=== PATIENT | female | born 1960 | race Caucasian/White ===

== ENCOUNTER 2019-08-21 22:14 | Inpatient (IN) | payer OTHER, SELFPAY ==
--- NOTE | ~2019-08-21 | XR_ITS ---
EXAMINATION: XR chest 1V portable 08/21/2019 22:58 INDICATION: Chest palpitations. Tachycardia. PROCEDURE: AP portable chest COMPARISON: 04/23/2012 FINDINGS: The lungs are clear. The cardiomediastinal silhouette is within normal limits. There are no pleural effusions. There is no pneumothorax suspected. IMPRESSION: 1: NO ACUTE CARDIOPULMONARY DISEASE. Reviewed, dictated and finalized at location A. [place] LANGUAGE TUTOR
[2019-08-21 22:19] VITALS: BP 169/104; PULSE 177; RESP 27; O2SAT 98
--- NOTE | 2019-08-21 22:22 | ED.ARRPALP ---
HPI - Arrhythmia/Palpitations General Chief Complaint: Arrhythmia/Palpitations Stated Complaint: heart palpitations Time Seen by Provider: 08/21/19 22:22 Source: patient Mode of arrival: ambulatory Limitations: no limitations History of Present Illness HPI narrative: A 58 y/o female presents to the ED with c/o heart palpitations. Pt states that for the last 2 weeks she has had increasing episodes of heart palpitations and lightheadedness. She notes that 1 year ago she had similar episodes and was seen by a equipment operation instructor. At the equipment operation instructor appointment she had a stress test done which revealed benign PVCs. Pt reports nausea and CP, but denies diarrhea and vomiting. She is a nonsmoker and an occasional EtOH drinker. MD complaint: palpitations Onset (ago): week(s) (2) Duration: intermittent Severity: similar to previous episodes Arrhythmia history: other (PVCs) Associated symptoms: chest pain, nausea and other (Lightheadedness) Related Data Allergies Allergy/AdvReac Type Severity Reaction Status Date / Time doxycycline Allergy Mild VOMITING Verified 08/21/19 22:34 fluoxetine Allergy HIVES Verified 08/21/19 22:34 Review of Systems Review of Systems: All systems reviewed & are unremarkable except as noted in HPI and below Cardiovascular: Cardiovascular: Reports chest pain, Reports lightheadedness and Reports other (Palpitations) Gastrointestinal: Gastrointestinal: Denies diarrhea, Reports nausea and Denies vomiting PMFSH Past Medical History Medical History (Updated 08/22/19 @ 00:28 by Mundo Thibodeaux MD) Asthma Bronchitis Depression PVC's (premature ventricular contractions) Rectal polyp Uterine fibroid Surgical History Surgical History (Updated 08/21/19 @ 22:30 by Xochilt Liu) No pertinent past surgical history Family History Family History Other Cerebrovascular accident Hypertension Social History Social History (Updated 08/21/19 @ 22:30 by Xochilt Liu) Smoking status: Never smoker Alcohol intake: current Alcohol use details: Occasional Exam Const: General: healthy appearing, well developed and ill appearing Nutritional Appearance: well nourished Orientation/consciousness: patient oriented x3 (alert) and Other orientation findings (Alert) Limitations: no limitations HENMT: Head: normocephalic and atraumatic Ears: external ears normal General nose exam: No nasal discharge present and no epistaxis Face and sinus: face symmetric Mouth: Yes lip normal, Yes tongue normal and Yes moist mucous membranes Throat: other (No exudate, no erythema) Eyes: Conjunctivae: conjunctivae normal Sclera: sclerae normal EOM: EOMs intact bilaterally Neck: Neck: full ROM, no lymphadenopathy and supple Thyroid: thyroid normal Chest: Chest palpation & inspection: no tenderness Resp: Effort & Inspection: normal respiratory effort Auscultation: clear to auscultation bilaterally, no rales, no rhonchi, no wheezes and other (breath sounds equal) Cardio: Rate: tachycardic Rhythm: regular rhythm Heart sounds: no gallops and no murmurs GI: Inspection: non-distended GI Palp: No abdominal tenderness and Yes Soft to palpation Auscultation: other (bowel sounds present) : General: Yes bladder normal to palpation Back/Spine/Pelvis: Back: no CVA tenderness Thoracic/Lumbar Spine: thoracic and lumbar spine normal to inspection Skin: General skin exam: normal color, no rashes or lesions noted and no pallor Neuro: General: patient oriented x3 (alert), moves all extremities and no focal motor deficits Cranial nerves: Yes facial symmetry Speech: normal speech Motor exam (neuro): Motor abnormalities not present Extrem: General: normal to inspection, full ROM and no pedal edema Psych: Affect: Anxious affect present Course Course Emergency Course: Several quite long periods of sustained v-tach seen on monitor w/ pt remaining alert though apprehensive with a wnl
--- NOTE | 2019-08-21 22:25 | PC.NURSE ---
Per EDP Carlos Eduardo verbal order read-back, start patient 150mg amiodarone IV.
--- NOTE | 2019-08-21 22:28 | ECG_ITS ---
Measurements Intervals [place] Rate: 143 P: 64 DC: 153 QRS: 43 QRSD: 88 T: 65 QT: 319 QTc: 493 Interpretive Statements SINUS TACHYCARDIA WITH INTERMITTENT VENTRICULAR TACHYCARDIA VENTRICULAR PREMATURE COMPLEX ABNORMAL ECG Electronically Signed On 08-22-2019 7:09:56 BOILER PLANT OPERATOR by Negro Larios D.O.
--- NOTE | 2019-08-21 22:30 | PC.NURSE ---
Per EDP Carlos Eduardo verbal order read-back, give patient an additional 150mg amiodarone IV over 1 hour.
--- NOTE | 2019-08-21 22:32 | ECG_ITS ---
Measurements Intervals [place] Rate: 80 P: 67 CO: 144 QRS: 46 QRSD: 94 T: 55 QT: 381 QTc: 441 Interpretive Statements SINUS RHYTHN VENTRICULAR COUPLETS AND VENTRICULAR PREMATURE COMPLEX POSSIBLE LEFT ATRIAL ENLARGEMENT BORDERLINE ST-T WAVE ABNORMALITY- DIFFUSE LEADS ABNORMAL ECG Electronically Signed On 08-22-2019 7:08:46 INTERLOCKING INSTALLER by Negro Larios D.O.
[2019-08-21 22:34] LABS: Basophils Absolute Auto 0.1 K/mm3 (0.0-0.1); Basophils Percent Auto 0.8 % (0.2-1.2); Eosinophils Absolute Auto 0.2 K/mm3 (0-0.3); Eosinophils Percent Auto 1.4 % (0-4.4); Hematocrit 44.4 % (37.0-47.0); Hemoglobin 15.2 g/dL (12.0-15.0); Immature Granulocyte Absolute 0.03 K/mm3 (0.00-0.031); Immature Granulocyte Percent A 0.3 % (0-0.5); Lymphocytes Absolute Auto 4.91 K/mm3 (0.9-3.2); Lymphocytes Percent Auto 41.4 % (18.3-44.2); Mean Corpuscular HGB Conc 34.2 g/dl (32-36); Mean Corpuscular Hemoglobin 30.1 pg (26-34); Mean Corpuscular Volume 87.9 fl (80-100); Mean Platelet Volume 9.7 fl (7.4-10.4); Monocytes Absolute Auto 0.9 K/mm3 (0.1-0.6); Monocytes Percent Auto 7.3 % (2.6-8.5); Neutrophils Absolute Auto 5.8 K/mm3 (1.3-6.7); Neutrophils Percent Auto 48.8 % (45.5-73.1); Platelet Count Result 345 k/mm3 (150-375); Red Blood Count 5.05 M/mm3 (4.2-5.4); Red Cell Distribution Width 12.4 % (11.5-14.5); White Blood Count 11.9 K/mm3 (4.5-10.0)
[2019-08-21] MEDS: ASPIRIN 81 MG CHEWABLE TABLET 324 MG PO (22:42)
[2019-08-21 22:47] LABS: INR 0.9; Partial Thromboplastin Time 26.6 SECONDS (22.3-36.8); Prothrombin Time 11.7 Seconds (11.1-14.7)
[2019-08-21 22:52] LABS: Blood Urea Nitrogen 22 mg/dL (7-17); Calcium 10.7 mg/dL (8.4-10.2); Carbon Dioxide 23 mmol/L (22-30); Chloride 99 mmol/L (98-107); Estimated Glomerular Filt Rate > 60; Glucose 106 mg/dL (65-105); Magnesium 2.4 mg/dL (1.6-2.3); Potassium 3.4 mmol/L (3.4-5.0); Sodium 143 mmol/L (137-145)
--- NOTE | 2019-08-21 23:03 | ECG_ITS ---
Measurements Intervals [place] Rate: 78 P: 64 HI: 147 QRS: 29 QRSD: 89 T: 53 QT: 379 QTc: 432 Interpretive Statements SINUS RHYTHM VENTRICULAR PREMATURE COMPLEX BASELINE ARTIFACT- V5 BORDERLINE ECG Electronically Signed On 08-22-2019 7:07:43 TUBING ASSEMBLER by Negro Larios D.O.
[2019-08-21 23:04] LABS: Troponin I < 0.012 ng/mL (0.000-0.034)
[2019-08-21] MEDS: POTASSIUM CHLORIDE 20 MEQ PACKET (FOR LIQUID) 40 MEQ PO (23:35)
[2019-08-21 23:36] VITALS: BP 178/86; PULSE 86; RESP 18; O2SAT 100
[2019-08-21] MEDS: AMIODARONE 360 MG/D5W 200 ML 360 MG/200 ML BAG 33.3 MG IV CONT (23:52)
[2019-08-22] VITALS (8 sets, daily range): BP systolic 108–148; BP diastolic 75–93; PULSE 61–81; RESP 13–20; TEMP 36.8–37; O2SAT 98–100; BMI 27.3
--- NOTE | 2019-08-22 00:55 | PM.IMHP ---
H&P: HPI History of Present Illness Chief complaint: sustained ventricular tachycardia Narrative: This is a previously healthy 59 year old female who is not on any home medications and presented to the hospital [facility] with a complaint of palpitations. The patient is known to have PVCs and over the past two weeks she has had increased episodes of dizziness and lightheadedness. The patient is known to have a Jelly Maker at [facility]. Tonight the patient felt like she was going to pass out and decided to come to the hospital. On arrival to the hospital the patient was found to be in a sustained ventricular tachycardia. Cardiology was consulted by ER provider and the patient was started on IV amiodarone which has converted the patient back into a normal sinus rhythm. On my encounter with the patient she currently is asymptomatic and has no complaints. ER provider asked Cardiology to admit the patient to the hospital and Cardiology, Dr. Tavera has refused to admit the patient to the hospital despite the patient having a malignant rhythm of sustained ventricular tachycardia [facility]. Review of Systems Review of Systems: All systems reviewed & are unremarkable except as noted in HPI and below PMFSH Past Medical History Medical History (Updated 08/22/19 @ 01:05 by Tim Enriquez MD) Asthma Bronchitis Depression PVC's (premature ventricular contractions) Rectal polyp Uterine fibroid Surgical History Surgical History (Updated 08/22/19 @ 01:04 by Tim Enriquez MD) Hx of myomectomy No pertinent past surgical history Family History Family History Other Cerebrovascular accident Hypertension Social History Social History Smoking status: Never smoker Alcohol intake: current Alcohol use details: Occasional Meds Home Medications and Allergies Allergies Allergy/AdvReac Type Severity Reaction Status Date / Time doxycycline Allergy Mild VOMITING Verified 08/21/19 22:34 fluoxetine Allergy HIVES Verified 08/21/19 22:34 Vital Signs Vital Signs - 24 hr 08/21/19 22:19 08/21/19 23:36 08/22/19 00:03 Pulse Rate 177 H 86 74 Respiratory Rate 27 H 18 17 Blood Pressure 169/104 H 178/86 H 136/81 Pulse Oximetry 98 100 100 Exam Const: General: cooperative, no acute distress, alert and awake Nutritional Appearance: well nourished Orientation/consciousness: patient oriented x3 HENMT: Head: normal to inspection General nose exam: Normal external nose present Face and sinus: normal facial exam Mouth: Yes Normal oral and palatal mucosa present and Yes oropharynx normal Eyes: Pupils: Equal, round and reactive pupils present EOM: EOMs intact bilaterally Neck: Neck: supple and no JVD Thyroid: thyroid normal Lymphatic: lymphadenopathy not noted Resp: Effort & Inspection: normal respiratory effort Auscultation: clear to auscultation bilaterally Cardio: Rate: regular rate Rhythm: regular rhythm Heart sounds: no murmurs GI: Inspection: normal to inspection Auscultation: normal bowel sounds Skin: General skin exam: normal color and no rashes or lesions noted Neuro: General: patient oriented x3 Cranial nerves: Yes CN's II-XII intact bilaterally and Yes Equal, round and reactive pupils present Speech: normal speech Motor exam (neuro): 5/5 motor strength present throughout Sensory Exam: normal sensation Extrem: General: normal to inspection and no edema Psych: Mental Status: mental status grossly normal Affect: normal affect H&P: Results Labs Labs: Short CBC 08/21/19 Range/Units 22:20 WBC 11.9 H (4.5-10.0) K/mm3 Hgb 15.2 H (12.0-15.0) g/dL Hct 44.4 (37.0-47.0) % Plt Count 345 (150-375) k/mm3 BMP 08/21/19 22:20 Sodium 143 Potassium 3.4 Chloride 99 Carbon Dioxide 23 BUN 22 H Creatinine 0.60 L Glucose 106 H Calcium 10.7 H Cardiac
--- NOTE | 2019-08-22 01:08 | ECHO_ITS ---
Patient Info Name: Juan Chou Age: 59 years : 1960 Gender: Female Ht: 66 in Wt: 169 lbs BSA: 1.91 m2 HR: 64 bpm BP: 145 / 88 mmHg Heart Rhythm: Sinus Rhythm Technical Quality: Good Exam Date: 08/22/2019 9:20 AM Exam Location: [facility] Patient Status: Inpatient Admit Date: 08/21/2019 Staff Ordering Physician: Tim Enriquez MD Shirt Sorter: Cheko Simms RDCS Attending Provider: Tim Enriquez MD Referring Physician: Zoe DURAN; Exam Type: CA echo doppler color flow Study Info Indications I47.1 - Supraventricular tachycardia Complete two-dimensional, color flow and Doppler transthoracic echocardiogram is performed. Strain analysis performed. History/Risk Factors Supraventricular tachycardia. Summary 1. Left ventricular chamber size, wall thickness, systolic and diastolic function are normal with no regional wall motion abnormalities with an estimated ejection fraction of 60-65%. Global longitudinal strain is normal, -19%. 2. The mitral valve is not well seen in all views but there is mild posterior prolapse with trivial mitral regurgitation. 3. There is mild pulmonic regurgitation. 4. Normal sinus rhythm with occasional PVCs. Left Ventricle Left ventricular chamber dimension is normal. Left ventricular systolic function is normal, estimated at Empty. There is no increased left ventricular wall thickness. Left ventricular septal wall motion is normal. The left ventricular diastolic function is normal. Global longitudinal strain is normal at 19 %. Left ventricular chamber size, wall thickness, systolic and diastolic function are normal with no regional wall motion abnormalities with an estimated ejection fraction of 60-65%. Global longitudinal strain is normal, -19%. Right Ventricle Right ventricular chamber dimension is normal. Right ventricular systolic function is normal. Left Atria Left atrial chamber dimension is normal. Right Atria Right atrial chamber dimension is normal. Aortic Valve The aortic valve is trileaflet. There is no aortic valve sclerosis. There is no aortic valve stenosis. There is no aortic valve regurgitation. Pulmonic Valve The pulmonic valve is normal. There is no pulmonic valve stenosis. There is mild pulmonic regurgitation. Mitral Valve The mitral valve is not well seen in all views but there is mild posterior prolapse with trivial mitral regurgitation. There is no mitral valve stenosis. There is trace mitral valve regurgitation. Tricuspid Valve The tricuspid valve leaflets are normal. There is no significant tricuspid valve stenosis. Unable to estimate pulmonary pressure.. There is trace tricuspid valve regurgitation. Pericardium/Pleural The pericardium appears normal. There is no pericardial effusion. Inferior Vena Cava Normal inferior vena cava with >50% collapse upon inspiration consistent with Empty right atrial pressure, 5 mmHg. Aorta The aortic root size at the sinus of Valsalva is normal. The prox ascending aorta size is normal. Tricuspid Valve Name Value Normal Estimated PAP/RSVP RA Pressure 5 mmHg <=5 Ventricles
[2019-08-22 01:35] LABS: Free T4 Free Thyroxine 0.73 ng/mL (0.78-2.19)
--- NOTE | 2019-08-22 01:55 | PC.NURSE ---
EKGs completed at: 22:21 22:35 22:48 on 08/21/18 All shown to AMARILIS Thibodeaux
[2019-08-22 02:42] LABS: Troponin I < 0.012 ng/mL (0.000-0.034)
[2019-08-22 04:47] LABS: Blood Urea Nitrogen 18 mg/dL (7-17); Carbon Dioxide 24 mmol/L (22-30); Chloride 108 mmol/L (98-107); Estimated CRCL calculation 95 ml/min; Estimated Glomerular Filt Rate > 60; Glucose 107 mg/dL (65-105); Potassium 4.3 mmol/L (3.4-5.0); Sodium 140 mmol/L (137-145)
[2019-08-22 04:59] LABS: Troponin I < 0.012 ng/mL (0.000-0.034)
[2019-08-22] MEDS: AMIODARONE 360 MG/D5W 200 ML 360 MG/200 ML BAG 16.7 MG IV CONT (05:50)
[2019-08-22] MEDS: FAMOTIDINE 20 MG/2 ML VIAL IV PUSH (07:46)
[2019-08-22] MEDS: LACTATED RINGERS 1,000 ML 60 ML IV CONT (07:46)
--- NOTE | 2019-08-22 09:16 | PM.IMPN ---
Progress Note: A&P Assessment and Plan (1) Sustained ventricular tachycardia: Code(s): I47.2 - Ventricular tachycardia Status: Acute Assessment and Plan: continue IV amiodarone cardiology evaluation will likely require EP intervention (2) Dizziness: Code(s): R42 - Dizziness and giddiness Status: Acute Assessment and Plan: likely due to sustained VT (3) Abnormal TSH: Code(s): R79.89 - Other specified abnormal findings of blood chemistry Status: Acute Assessment and Plan: possible sick euthyroid syndrome no replacement therapy at this time (TSH under 10 and no specific c/o related to hypothyroidism) will require outpatient f/u Subjective Date/time seen: 08/22/19 09:16 Interval history: Admitted 08/21 with symptomatic (lightheaded, chest tightness, tingling in hands) sustained VT. Converted to NSR with amiodarone IV. Hx PVC's. Last echo about 2 years ago. Denied chest pain shortness of breath, GI or changes, abnormal bleeding, other weakness or numbness or headache. Review of Systems Review of Systems: All systems reviewed & are unremarkable except as noted in HPI and below Exam Narrative: Exam Narrative: HEENT: EOMI, PERRL, pharyngeal mucosa pink and intact NECK: No JVD CHEST: Clear to auscultation. Normal effort. HEART: NL S1/S2, regular, no murmur ABDOMEN: BS+, soft, nontender, no mass, no bruits EXTREMITIES: No cyanosis, edema, or clubbing NEUROLOGIC: CN intact and symmetric to inspection. MUSCULOSKELETAL: Tone and strength symmetric. PSYCH: Alert. Oriented to person, place, and time. Objective Data Vital Signs Vital Signs: Vital Signs - 24 hr 08/21/19 22:19 08/21/19 23:36 08/22/19 00:03 Temperature Pulse Rate 177 H 86 74 Respiratory Rate 27 H 18 17 Blood Pressure 169/104 H 178/86 H 136/81 Pulse Oximetry 98 100 100 08/22/19 01:12 08/22/19 02:00 08/22/19 04:00 Temperature 98.3 F Pulse Rate 74 67 61 Respiratory Rate 17 16 17 Blood Pressure 141/78 H 148/78 H 108/75 Pulse Oximetry 100 98 98 08/22/19 08:00 Temperature Pulse Rate Respiratory Rate Blood Pressure Pulse Oximetry 98 Intake/Output Intake/Output: Intake & Output 02/16/20 02/17/20 02/18/20 02/19/20 23:59 23:59 23:59 23:59 Intake Total 200 Balance 200 Meds/Results Medications: Active Medications Generic Name Dose Route Start Last Admin Trade Name Juan PRN Reason Stop Dose Admin Famotidine 20 mg 08/22/19 09:00 08/22/19 07:46 Pepcid Iv IV PUSH 20 mg Q12HR CAMILA Administration Amiodarone HCl/Dextrose 360 mg in 200 mls @ 16.667 mls/hr 08/21/19 05:40 08/22/19 05:50 Nexterone 360 Mg/D5w 200 Ml IV CONT 0.5 mg/min .Q12H CAMILA 16.7 mls/hr Administration 0.5 MG/MIN Lactated Ringer's 1,000 mls @ 60 mls/hr 08/22/19 00:05 08/22/19 07:46 Lr - Lactated Ringers Iv IV CONT 60 mls/hr .[id number] CAMILA Administration Potassium Chloride 20 meq 08/22/19 08:00 Kcl Tablet PO BIDWM CAMILA Radiology Results: ITS Impressions Chest X-Ray 08/21/19 23:05 IMPRESSION: 1: NO ACUTE CARDIOPULMONARY DISEASE. Labs Labs: Laboratory Results - last 24 hr 08/21/19 08/21/19 08/21/19 22:20 22:20 22:20 WBC 11.9 H RBC 5.05 Hgb 15.2 H Hct 44.4 MCV 87.9 MCH 30.1 MCHC 34.2 RDW 12.4 Plt Count 345 MPV 9.7 Immature Gran % (Auto) 0.3 Neut % (Auto) 48.8 Lymph % (Auto) 41.4 [place] % (Auto) 7.3 Eos % (Auto) 1.4 Baso % (Auto) 0.8 Lymph # (Auto) 4.91 H [place] # (Auto) 0.9 H Eos # (Auto) 0.2 Baso # (Auto) 0.1 Abs Immat Gran (auto) 0.03 Absolute Neuts (auto) 5.8 Absolute Nucleated RBC 0.0 Nucleated RBC % 0.0 PT 11.7 INR 0.9 APTT 26.6 Sodium 143 Potassium 3.4 Chloride 99 Carbon Dioxide 23 BUN 22 H Creatinine 0.60 L Estim Creat Clear Calc Not Reportable Estimated GFR > 60 Glucose 106 H Calcium
--- NOTE | 2019-08-22 10:37 | WPDCN ---
Assessment and Plan Assessment and plan (1) Sustained ventricular tachycardia: Onset Date: ~08/22/19 Code(s): I47.2 - Ventricular tachycardia Status: Acute Assessment and Plan: Patient presents with long runs of ventricular tachycardia, sustained and nonsustained, rate 190, LBBB pattern, responding well to amiodarone. Echo is pending, but I doubt she has structural heart disease or an ischemic component. This is likely an idiopathic ventricular tachycardia such as an RVOTVT etcetera. She needs to see an hot shot; this may be an ablatable rhythm. I spoke to her counseling specialist, Dr. Lyman, and he will accept the patient in transfer to [facility] for further evaluation and treatment. (2) Pre-syncope: Code(s): R55 - Syncope and collapse Status: Acute Assessment and Plan: Secondary to ventricular tachycardia (3) Abnormal TSH: Code(s): R79.89 - Other specified abnormal findings of blood chemistry Status: Acute Assessment and Plan: TSH was mildly elevated, 8.2. Follow-up with Dr. Kruse. (4) Hypokalemia: Code(s): E87.6 - Hypokalemia Status: Acute Assessment and Plan: Potassium was mildly low at 3.4 on admission, treated. HPI Data of Consult Date/Time: 08/22/19 10:37 Requesting Physician: Tim Enriquez MD Primary Care Provider: Khloe Kruse MD Consult Narrative Reason for consult: Ventricular tachycardia Narrative: Date of service: 08/22/2019 Juan Chou is a 59 year old female who I was asked to see at the request of Dr. Gurrola for advice and opinion regarding her ventricular tachycardia in consultation. Mrs. Chou with seen in the past by Dr.Morton Lyman, counseling specialist [facility], for PVCs. She has had stress test, monitoring, and an echo and the conclusion was she was having benign PVCs. About 3 weeks ago while at work she suddenly felt presyncopal and wondered if it was a hot flash or an adrenaline serrano but it passed. Over the past week she has had episodes of lightheadedness. Tuesday she had an episode where she felt presyncope. Last night the presyncope returned but it was ?horrendous? She was feeling her heart beating ?super fast off and on? and heart rushing. She was scared and came to the emergency room where she was found to have sustained and nonsustained ventricular tachycardia with a rate of about 190 beats per minute. When she was put on IV amiodarone the V-tach subsided. She did not require cardioversion. she was also given potassium for K+ of 3.5. She is now having occasional PVCs, and some couplets and triplets and is feeling a lot better. She did have some chest discomfort when she was having sustained runs. Her troponins are negative. Echo has been done but not available for me to review (the alarm field technician thought it looked normal). There is no hypertension, diabetes or elevated cholesterol. At home she is able to exert with no particular problems with shortness of breath or chest discomfort. She has never had true syncope. There is no family history of sudden cardiac other her mother may have had some palpitations as has her sister. No new medications or supplements. Drinks half a cup of coffee a day, no decongestants, occasional wine. Review of Systems Constitutional: Constitutional: Denies fatigue, Denies fever(s), Denies frequent falls and Denies lethargy Eyes: Eyes: Denies blurry vision ENT: Reports Normal hearing present Cardiovascular: Cardiovascular: Reports chest pain, Denies chest pain with activity, Denies syncope, Denies rapid heart rate, Denies pedal edema, Denies edema, Denies leg edema, Reports lightheadedness, Reports palpitations, Denies dyspnea, Denies dyspnea on exertion and Denies orthopnea Respi
--- NOTE | 2019-08-22 11:54 | WPDCNINT ---
Assessment and Plan Assessment and plan (1) Sustained ventricular tachycardia: Onset Date: ~08/22/19 Code(s): I47.2 - Ventricular tachycardia Status: Acute Assessment and Plan: patient with sustained and nonsustained V-tach. Left bundle branch block pattern on admission. Patient has responded well to amiodarone. - Cardiology following the patient, the have discussed with her hand etcher at [facility] and will be transferring the patient for further evaluation and treatment. - Cardiogram has been ordered and pending (2) Hypokalemia: Code(s): E87.6 - Hypokalemia Status: Acute Assessment and Plan: patient was hypokalemic on arrival, potassium was replaced, - potassium this morning is 4.3 (3) Pre-syncope: Code(s): R55 - Syncope and collapse Status: Acute Assessment and Plan: presyncope most likely related to ventricular tachycardia - no episodes since the patient is been in the ICU on amiodarone infusion, no episodes of V-tach noted (4) Abnormal TSH: Code(s): R79.89 - Other specified abnormal findings of blood chemistry Status: Acute Assessment and Plan: patient will require outpatient follow-up for TSH, possible sick euthyroid syndrome Additional Plan discussed with patient and her and updated them with her condition and plan of care. They are aware that she will transferring to [facility] in [facility]. I answered all questions. Code status: Full code Critical care time spent: 37 minutes Due to a high probability of clinically significant, life threatening deterioration, the patient required my highest level of preparedness to intervene emergently and I personally spent this critical care time directly and personally managing the patient. This critical care time included obtaining a history; examining the patient; pulse oximetry; ordering and review of studies; arranging urgent treatment with development of a management plan; evaluation of patient's response to treatment; frequent reassessment; and discussions with other providers. It was exclusive of separately billable procedures and treating other patients and teaching time. Please see Assessment and Plan section and the rest of the note for further information on patient assessment and treatment Entertainment Lawyer Consult Note Consult date: 08/22/19 Time Seen: 06:57 Reason for consult: ventricular tachycardia HPI: Juan Chou is a 59 year old female with past medical history of asthma, bronchitis, depression, premature ventricular ventricular contractions sees Dr. jose Lyman at [facility] in [facility], presented to the ED on 08/21/2019 with complains of palpitations and racing of her heart. She also had increased episodes of dizziness and lightheadedness 2 point that she felt she is going to pass out. This warranted her to come to the ED. In the ED patient was found to be in sustained and nonsustained ventricular tachycardia with rates up to 190 beats per minute. She was placed on IV amiodarone infusion very V-tach subsided patient's potassium levels were 3.5 which was repleted, this morning potassium is 4.3. patient transferred to the ICU for further management, has been having some PVCs in the ICU but feels a lot better. Patient denies any chest discomfort, shortness of breath, abdominal pain, nausea, vomiting at this time. Patient is otherwise hemodynamically stable on room air with good O2 sats. Urine output has been adequate. Patient denies any palpitations, denied any presyncopal or syncopal episodes overnight Review of Systems Review of Systems: All systems reviewed & are unremarkable except as noted in HPI and below PMFSH Past Medical History Medical History Asthma Bronchitis Depression PVC's (premature ventricular contractions) Rectal polyp Uterin
--- NOTE | 2019-08-22 12:05 | PC.NURSE ---
Report given to CARLINE Min at [facility] in [place], [place]
--- NOTE | 2019-09-07 14:18 | PM.DS ---
DS: Diagnosis Admitting Diagnosis Admitting Diagnosis: Ventricular tachycardia DS: Summary Hospital Course Reason for hospitalization: Sustained ventricular tachycardia Hospital Course: DAte of admission: 08/21/2019 Date of transfer: 08/22/2019 Mrs. Chou with seen in the past by Dr.Morton Lyman, security supervisor Counts include 234 beds at the [facility], for PVCs. She has had stress test, monitoring, and an echo and the conclusion was she was having benign PVCs. About 3 weeks ago while at work she suddenly felt presyncopal and wondered if it was a hot flash or an adrenaline serrano but it passed. Over the past week she has had episodes of lightheadedness. Tuesday she had an episode where she felt presyncope. Last night the presyncope returned but it was ?horrendous? She was feeling her heart beating ?super fast off and on? and heart rushing. She was scared and came to the emergency room where she was found to have sustained and nonsustained ventricular tachycardia with a rate of about 190 beats per minute. When she was put on IV amiodarone the V-tach subsided. She did not require cardioversion. she was also given potassium for K+ of 3.5. She is now having occasional PVCs, and some couplets and triplets and is feeling a lot better. She did have some chest discomfort when she was having sustained runs. Her troponins are negative. Echo has been done but not available for me to review (the production technician thought it looked normal). Patient presents with long runs of ventricular tachycardia, sustained and nonsustained, rate 190, LBBB pattern, responding well to amiodarone. 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 She needs to see an construction safety manager; this may be an ablatable rhythm. I spoke to her security supervisor, Dr. Lyman, and he will accept the patient in transfer to [facility] for further evaluation and treatment. Diagnostic Data: Echo: 1. Left ventricular chamber size, wall thickness, systolic and diastolic function are normal with no regional wall motion abnormalities with an estimated ejection fraction of 60-65%. Global longitudinal strain is normal, -19%. 2. The mitral valve is not well seen in all views but there is mild posterior prolapse with trivial mitral regurgitation. 3. There is mild pulmonic regurgitation. 4. Normal sinus rhythm with occasional PVCs. 08/21/2019 at 10:21 p.m. EKG showed sinus rhythm, runs of ventricular tachycardia rate 190 with a LBBB pattern, minor nonspecific ST changes, QT interval normal. Personally reviewed 08/21/2019 at 10:35 p.m. EKG showed NSR, PVCs and couplets with an LBBB pattern, no ischemic changes, minor nonspecific ST changes, personally reviewed. 08/21/2019 at 10:48 p.m. EKG showed NSR, isolated PVC, minor nonspecific ST changes, personally reviewed Chest x-ray showed no acute cardiopulmonary disease K+ 3.4, Mag 2.4, TSH elevated at 8.2 Time spent discussing smoking cessation with patient: 3 to 10 minutes Status at Discharge Functional status at discharge: independent ambulation Overall status at discharge: patient is not back to baseline Time Spent with Patient Time attestation: Total time spent providing and/or coordinating discharge services: 45 minutes Time spent: Greater than 30 minutes Exam Const: General: cooperative, healthy appearing, comfortable and no acute distress; No confusion Orientation/consciousness: patient oriented x3 and No confusion HENMT: Head: normal to inspection and no cranial bruits Ears: external ears normal General nose exam: Normal external nose present Face and sinus: normal facial exam Mouth: Yes Normal oral and palatal mucosa present Eyes: General: appearance normal, both eyes and all related structures EOM: EOMs intact bilaterally Neck: Neck: normal visual inspection, supple and No JVD Thyroid: thyroid normal Carotids: no bruits Chest: Chest palpation & inspection: normal inspectio
--- NOTE | 2019-09-25 13:20 | PM.TDS ---
Transfer Discharge Sum: Prov Provider Date of admission: 08/21/19 23:53 Primary care physician: Khloe Kruse MD Admitting clinician: Tim Enriquez MD Consults: 08/22/19 08:01 Consult to Physician Routine Comment: spoke with harvey wolf for consult information Consulting Provider: Dai Pruett on call/MD group to consult: Cardiology Reason for consultation: Tachyarrhythmia Has provider been notified: Yes DS: Diagnosis Admitting Diagnosis Admitting Diagnosis: Ventricular tachycardia Transfer Discharge Sum: Med Medications Active and Home Medications: Home Medications No Home Medications 08/22/19 [History Confirmed 08/22/19] Transfer Discharge Sum: Hosp Hospital Course Hospital course: Juan Chou is a 59 year old female who was seen in the past by Dr.Morton Lyman, forming machine operator [facility], for PVCs. She has had stress test, monitoring, and an echo and the conclusion was she was having benign PVCs. About 3 weeks ago while at work she suddenly felt presyncopal and wondered if it was a hot flash or an adrenaline serrano but it passed. Over the past week she has had episodes of lightheadedness. Tuesday she had an episode where she felt presyncope. Last night the presyncope returned but it was ?horrendous? She was feeling her heart beating ?super fast off and on? and heart rushing. She was scared and came to the emergency room where she was found to have sustained and nonsustained ventricular tachycardia with a rate of about 190 beats per minute. When she was put on IV amiodarone the V-tach subsided. She did not require cardioversion. she was also given potassium for K+ of 3.5. She is now having occasional PVCs, and some couplets and triplets and is feeling a lot better. She did have some chest discomfort when she was having sustained runs. Her troponins are negative. Echo has been done but not available for me to review (the fingernail technician thought it looked normal). Patient presents with long runs of ventricular tachycardia, sustained and nonsustained, rate 190, LBBB pattern, responding well to amiodarone. 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 She needs to see an supervisor inspection room; this may be an ablatable rhythm. I spoke to her forming machine operator, Dr. Lyman, and he will accept the patient in transfer to [facility] for further evaluation and treatment. Diagnostic Data: Echo: 1. Left ventricular chamber size, wall thickness, systolic and diastolic function are normal with no regional wall motion abnormalities with an estimated ejection fraction of 60-65%. Global longitudinal strain is normal, -19%. 2. The mitral valve is not well seen in all views but there is mild posterior prolapse with trivial mitral regurgitation. 3. There is mild pulmonic regurgitation. 4. Normal sinus rhythm with occasional PVCs. 08/21/2019 at 10:21 p.m. EKG showed sinus rhythm, runs of ventricular tachycardia rate 190 with a LBBB pattern, minor nonspecific ST changes, QT interval normal. Personally reviewed 08/21/2019 at 10:35 p.m. EKG showed NSR, PVCs and couplets with an LBBB pattern, no ischemic changes, minor nonspecific ST changes, personally reviewed. 08/21/2019 at 10:48 p.m. EKG showed NSR, isolated PVC, minor nonspecific ST changes, personally reviewed Chest x-ray showed no acute cardiopulmonary disease K+ 3.4, Mag 2.4, TSH elevated at 8.2 Time Spent with Patient Time attestation: Total time spent providing and/or coordinating transfer services: 45 minutes Exam Narrative: Exam Narrative: See consult note DS: Data Data Completed and Pending Completed studies during hospitalization: See above Pending studies at discharge: None Labs on day of discharge: SEe above
== END 2019-08-22 05:45 | disposition short-term general hospital (02) | DRG 310 ==
LOC: ANHED 08-22 00:28 → ANHICU 08-22 00:37
PROVIDERS: Admitting Provider Family Medicine; Emergency Provider Emergency Medicine; PCP Family Medicine; Visit Provider Internal Medicine Cardiovascular Disease
DX: I47.2 Ventricular tachycardia (principal); I49.3 Ventricular premature depolarization; F32.9 Major depressive disorder, single episode, unspecified; Z87.19 Personal history of other diseases of the digestive system; E87.6 Hypokalemia; J45.909 Unspecified asthma, uncomplicated
CPT/HCPCS: 36415; 71045; 80048; 83735; 84439; 84443; 84484; 85025; 85610; 85730; 93005; 93306; 96365; 99285; A9270; J0282; J7120

== ENCOUNTER 2020-03-29 07:06 | Emergency (ER) | payer OTHER, SELFPAY ==
[2020-03-29 07:21] VITALS: BP 163/85; PULSE 50; RESP 18; TEMP 36.7; O2SAT 100
--- NOTE | 2020-03-29 07:29 | ED.GENADULT ---
HPI - General Adult General Chief complaint: Unspecified Stated complaint: sinus pain, dizzy Time Seen by Provider: 03/29/20 07:13 History of Present Illness HPI narrative: Patient is a 59-year-old female complaining of sinus tenderness x1 week. Patient denies any fever or chills. Patient states she has a history of allergies and has been taking hyps-rra-vobhinb allergy medications for the past month. Related Data Home Medications Medication Instructions Recorded Confirmed amiodarone 100 mg tablet 100 mg PO DAILY 12/20/19 diltiazem HCl 30 mg tablet 30 mg PO ONCE tablet 12/20/19 Allergies Allergy/AdvReac Type Severity Reaction Status Date / Time doxycycline Allergy Mild VOMITING Verified 03/29/20 07:28 rosuvastatin [From Crestor] Allergy Mild Unknown Verified 03/29/20 07:28 fluoxetine Allergy HIVES Verified 03/29/20 07:28 Review of Systems Review of Systems: All systems reviewed & are unremarkable except as noted in HPI and below Constitutional: Constitutional: Reports no additional constitutional complaints, Denies chills, Denies fatigue, Denies fever(s) and Denies weakness ENT: Denies dysphagia, Denies vertigo, Denies dizziness, Denies epistaxis, Reports nasal congestion and Denies sore throat Cardiovascular: Cardiovascular: Reports no additional cardiovascular complaints and Denies chest pain Respiratory: Respiratory: Denies chest congestion, Denies dyspnea and Denies wheezing Gastrointestinal: Gastrointestinal: Denies nausea and Denies vomiting Integumentary/Breasts: Skin/Breast: Denies pruritus, Denies erythema and Denies rash Neurologic: Reports system reviewed and no additional complaints, except as documented, Denies headache(s), Denies focal weakness and Denies numbness [facility] Social History Social History Social History: , no children, lives in [place] [place] [facility]. 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 Smoking status: Never smoker Second hand tobacco smoke exposure: No Alcohol intake: former Substance use: never Substance use type: does not use Gender identity (if verbalized by the patient): Female Spiritual care concerns: No Agree to blood products: Yes Exam Const: General: cooperative, healthy appearing, comfortable, no acute distress, well developed, alert and awake; No confusion Orientation/consciousness: oriented to person, oriented to place, oriented to time, patient oriented x3 and No confusion Limitations: no limitations HENMT: Head: normal to inspection, normocephalic and atraumatic Ears: hearing grossly normal bilaterally, TM normal on the right and TM normal on the left General nose exam: Normal external nose present, Normal nares present and No nasal discharge present Face and sinus: normal facial exam Mouth: Yes Normal oral and palatal mucosa present, Yes lip normal, Yes tongue normal and Yes oropharynx normal Throat: posterior oropharynx normal, tonsils normal and uvula midline Eyes: General: appearance normal, both eyes and all related structures Pupils: Equal, round and reactive pupils present EOM: EOMs intact bilaterally Neck: Neck: normal visual inspection, full ROM, no lymphadenopathy and no meningeal signs Resp: Effort & Inspection: normal respiratory effort, able to speak in complete sentences, no respiratory distress and not tachypneic Auscultation: clear to auscultation bilaterally, no crackles, no rales, no rhonchi and no wheezes Cardio: Rate: regular rate Rhythm: regular rhythm GI: Auscultation: normal bowel sounds Skin: General skin exam: normal color, no rashes or lesions noted, elasticity normal and turgor normal Neuro: General: oriented to person, oriented to place, oriented to time, patient oriented x3, tone normal, moves all extremities, Normal light touch and pain sensation, no meningeal signs, no foc
== END 2020-03-29 07:56 | disposition home or self-care (01) ==
PROVIDERS: Emergency Provider Emergency Medicine; PCP Family Medicine
DX: J01.00 Acute maxillary sinusitis, unspecified (principal)
CPT/HCPCS: 96372; 99283; J1100

== ENCOUNTER 2020-03-31 14:15 | Emergency (ER) | payer OTHER, SELFPAY ==
[2020-03-31] VITALS (61 sets, daily range): BP systolic 112–141; BP diastolic 48–88; PULSE 44–65; RESP 10–21; TEMP 36.1–36.2; O2SAT 95–100
--- NOTE | ~2020-03-31 | CT_ITS ---
EXAMINATION: CT brain wo con DATE: 03/31/2020 15:00 INDICATION: Left facial weakness. Left arm weakness. TECHNIQUE: Computed tomography (CT) of the head was performed without intravenous contrast. The mA wa s adjusted according to patient size. Iterative reconstruction technique was employed. The dose-lengt h product was 605.33 mGy-cm. COMPARISON: None FINDINGS: There is a 6.0 cm mass of mixed attenuation in right temporal lobe. 10 mm and 4 mm areas of high attenuation in the mass may be calcification or acute hemorrhage. There is low-attenuation vaso genic edema around the mass. There is no acute ischemic infarct. There is 1.3 cm leftward midline ebony ft at the foramen of Monro. Right-sided uncal herniation is noted. There is mild dilatation of tempor al horn of right lateral ventricle, consistent with entrapment. The paranasal sinuses are clear. Ther e are likely changes of left ocular lens replacement surgery. The mastoid air cells are normal. IMPRESSION: 1. 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 I called thi s result to Dr. Dueñas on 03/31/20 at 3:11 PM. Two relatively small areas of high attenuation in th e mass may be calcification or hematoma. 2. 1.3 cm leftward midline shift. Right-sided uncal herniation. Reviewed, dictated and finalized at location A. IMPRESSION: 1. 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 I called this result to Dr. Dueñas on 03/31/20 at 3:11 PM. Two rela tively small areas of high attenuation in the mass may be calcification or albino simona. 2. 1.3 cm leftward midline shift. Right-sided uncal herniation.
--- NOTE | ~2020-03-31 | XR_ITS ---
EXAMINATION: XR chest 1V portable DATE: 03/31/2020 15:46 INDICATION: Weakness. Dizziness. TECHNIQUE: A single frontal view of the chest was obtained on 2 radiographs. COMPARISON: Chest single view 08/21/2019 FINDINGS: The chest demonstrates clear lungs without pneumonia, pleural effusion, or pneumothorax. Th e heart size is normal. IMPRESSION: 1. No acute cardiopulmonary disease. Reviewed, dictated and finalized at location A.
--- NOTE | 2020-03-31 14:30 | ECG_ITS ---
Measurements Intervals [place] Rate: 64 P: 62 FL: 132 QRS: -26 QRSD: 130 T: 32 QT: 426 QTc: 441 Interpretive Statements SINUS RHYTHM RIGHT BUNDLE BRANCH BLOCK BASELINE ARTIFACT- I, II, AVR, AVL, AVF ABNORMAL ECG Electronically Signed On 03-31-2020 15:02:08 CDT by Negro Larios D.O.
[2020-03-31 14:38] LABS: Glucose Point of Care 97 (65-105)
[2020-03-31 14:52] LABS: Basophils Absolute Auto 0.1 K/mm3 (0.0-0.1); Basophils Percent Auto 0.5 % (0.2-1.2); Eosinophils Absolute Auto 0.1 K/mm3 (0-0.3); Eosinophils Percent Auto 0.7 % (0-4.4); Hematocrit 42.7 % (37.0-47.0); Hemoglobin 14.6 g/dL (12.0-15.0); Immature Granulocyte Absolute 0.04 K/mm3 (0.00-0.031); Immature Granulocyte Percent A 0.4 % (0-0.5); Lymphocytes Absolute Auto 2.75 K/mm3 (0.9-3.2); Lymphocytes Percent Auto 27.2 % (18.3-44.2); Mean Corpuscular HGB Conc 34.2 g/dl (32-36); Mean Corpuscular Hemoglobin 31.1 pg (26-34); Mean Platelet Volume 9.9 fl (7.4-10.4); Monocytes Absolute Auto 0.6 K/mm3 (0.1-0.6); Monocytes Percent Auto 5.9 % (2.6-8.5); Neutrophils Absolute Auto 6.6 K/mm3 (1.3-6.7); Neutrophils Percent Auto 65.3 % (45.5-73.1); Platelet Count Result 255 k/mm3 (150-375); Red Blood Count 4.69 M/mm3 (4.2-5.4); Red Cell Distribution Width 12.1 % (11.5-14.5); White Blood Count 10.1 K/mm3 (4.5-10.0)
[2020-03-31 15:04] LABS: Prothrombin Time 13.2 Seconds (11.1-14.7)
[2020-03-31 15:05] LABS: Partial Thromboplastin Time 25.7 SECONDS (22.3-36.8)
[2020-03-31 15:09] LABS: Anion Gap 10 mmol/L (8-16); Blood Urea Nitrogen 34 mg/dL (7-17); Calcium 9.5 mg/dL (8.4-10.2); Carbon Dioxide 27 mmol/L (22-30); Chloride 108 mmol/L (98-107); Estimated CRCL calculation 69 ml/min; Estimated Glomerular Filt Rate > 60; Glucose 100 mg/dL (65-105); Potassium 3.8 mmol/L (3.4-5.0); Sodium 145 mmol/L (137-145)
[2020-03-31 15:20] LABS: Troponin I < 0.012 ng/mL (0.000-0.034)
--- NOTE | 2020-03-31 16:09 | ED.GENADULT ---
HPI - General Adult General Chief complaint: Neuro Symptoms/Deficit Stated complaint: dropping things, dowling, stumbeling Time Seen by Provider: 03/31/20 15:44 Source: patient History of Present Illness HPI narrative: Patient is a 59 y/o female complaining of bilateral frontal headache for 4-5 days. She describes her headache as throbbing and rates her headache as 4.5/10. She took Tylenol and other OTC meds which did not help. She also has been feeling unsteady, with shuffling gait and walking to sides for 2 weeks. She has been dropping things out of her hands frequently. Related Data Home Medications Medication Instructions Recorded Confirmed amiodarone 100 mg tablet 100 mg PO DAILY 12/20/19 diltiazem HCl 30 mg tablet 30 mg PO ONCE tablet 12/20/19 Allergies Allergy/AdvReac Type Severity Reaction Status Date / Time doxycycline Allergy Mild VOMITING Verified 03/29/20 07:28 rosuvastatin [From Crestor] Allergy Mild Unknown Verified 03/29/20 07:28 fluoxetine Allergy HIVES Verified 03/29/20 07:28 Review of Systems Constitutional: Constitutional: Denies chills, Denies fever(s), Reports headache(s) and Denies weakness Eyes: Eyes: Denies blurry vision ENT: Reports headache(s) and Denies neck pain Cardiovascular: Cardiovascular: Denies chest pain and Denies dyspnea Respiratory: Respiratory: Denies cough and Denies dyspnea Gastrointestinal: Gastrointestinal: Denies abdominal pain, Denies diarrhea, Denies nausea and Denies vomiting Genitourinary: Genitourinary: Denies hematuria and Denies dysuria Musculoskeletal: Musculoskeletal: Denies back pain and Denies neck pain Neurologic: Reports headache(s), Reports disequilibrium and Denies weakness [facility] Past Medical History Medical History Asthma Bronchitis Depression PVC's (premature ventricular contractions) Rectal polyp Uterine fibroid Social History Social History Social History: , no children, lives in [facility] [facility]. 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 Smoking status: Never smoker Second hand tobacco smoke exposure: No Alcohol intake: former Substance use: never Substance use type: does not use Gender identity (if verbalized by the patient): Female Spiritual care concerns: No Agree to blood products: Yes Exam Const: General: no acute distress and well developed Orientation/consciousness: oriented to person, oriented to place, oriented to time and patient oriented x3 HENMT: Head: normocephalic Ears: external ears normal General nose exam: Normal external nose present Eyes: General: appearance normal, both eyes and all related structures Conjunctivae: conjunctivae normal Neck: Neck: normal visual inspection and full ROM Chest: Chest palpation & inspection: normal inspection of the chest and no tenderness Resp: Effort & Inspection: normal respiratory effort Auscultation: clear to auscultation bilaterally Cardio: Rate: regular rate Rhythm: regular rhythm GI: GI Palp: No abdominal tenderness and Yes Soft to palpation Skin: General skin exam: normal color and turgor normal Neuro: General: oriented to person, oriented to place, oriented to time and patient oriented x3 Cranial nerves: No facial symmetry (left facial droop) Cognition (Neuro): normal cognition Motor exam (neuro): 5/5 motor strength present throughout Sensory Exam: normal sensation Extrem: General: normal to inspection, full ROM and no pedal edema Psych: Appearance: grossly normal Mental Status: mental status grossly normal Affect: normal affect Course Reevaluation(s) Reevaluation #1: Patient fell while attempting to use bedside commode. She denies any pain or injury. Date: 03/31/20 Consultations Consultation #1: Discussed with Dr. Silva (neurosurgery) at [facility]
[2020-03-31] MEDS: DEXAMETHASONE SOD PHOS INJ 4 MG/ML VIAL IV PUSH (16:12)
--- NOTE | 2020-03-31 17:18 | PC.NURSE ---
rn spoke with [facility] at this time for initial assessment intake questions. will return call once bed placement is available..
--- NOTE | 2020-03-31 17:54 | PC.NURSE ---
In to help pt to bedside commode, note pt somewhat unsteady. Pt squats and urinates over the commode, wipes, and when turning around and standing upright pt falls onto left side onto floor. This RN calls for assist and CARLINE Ford to bedside to assist with getting patient up. Pt moves all extremities well. Denies new pain. Prem hips palpated and pelvic push all negative to pain. Pt's legs flexed and pt pt denies pain with movement. States I fall all the time . Offered physician exam, pt refuses, states I'm really ok . Rachel Junior, senior payroll manager made aware. Dr. Davis made aware.
--- NOTE | 2020-03-31 19:58 | PC.NURSE ---
Spoke w/Rach @ [facility]...patient has been accepted, WAITING ON BED in neuro step down unit.
--- NOTE | 2020-03-31 22:20 | PC.NURSE ---
rn spoke with Farhan at [facility]- pt has a bed room 21733-[id number].
[2020-04-01] VITALS (52 sets, daily range): BP systolic 98–139; BP diastolic 51–80; PULSE 40–70; RESP 9–18; TEMP 36.3; O2SAT 93–99
--- NOTE | 2020-04-01 02:21 | PC.NURSE ---
New ETA from [facility] is 0400 for patient transfer
--- NOTE | 2020-04-01 04:59 | PC.NURSE ---
Addendum entered by Evon Theodore 04/01/20 05:39: [facility] CALL[facility] WITH UPDATED ETA OF 0645 Original Note: EMS TRANSPORT TO [place]: 2221 CALLED [facility], ETA 0200; 0210, OBTAINED UPDATED ETA OF 0400; 0400, UPDATED ETA 0445; 0453, UPDATED ETA 0600 2230 CALLED [facility] - DECLINED 0456 - CALLED [facility] - DECLINED 0457 - [facility]
[2020-04-01] MEDS: DEXAMETHASONE SOD PHOS INJ 4 MG/ML VIAL IV PUSH (06:49)
--- NOTE | 2020-04-01 07:06 | PC.NURSE ---
Per pt request RN called pts Francisco to let him know that ambulance arrived and she was leaving the unit. RN also called [facility] [phone] to let them know that patient was on her way.
== END 2020-04-01 07:08 | disposition short-term general hospital (02) ==
PROVIDERS: Emergency Medicine; Emergency Provider Emergency Medicine; PCP Family Medicine
DX: G93.6 Cerebral edema (principal); G93.9 Disorder of brain, unspecified; J45.909 Unspecified asthma, uncomplicated; F32.9 Major depressive disorder, single episode, unspecified; Z87.19 Personal history of other diseases of the digestive system
CPT/HCPCS: 36415; 70450; 71045; 80048; 84484; 85025; 85610; 85730; 93005; 96374; 99285; J1100

== ENCOUNTER 2020-04-08 16:40 | IRF | payer OTHER, SELFPAY ==
--- NOTE | ~2020-04-08 | XR_ITS ---
EXAMINATION: XR abdomen/kub 1V INDICATION: Constipation and abdominal discomfort TECHNIQUE: Supine views of the abdomen were obtained on 2 radiographs. COMPARISON: None FINDINGS: There is a moderate volume of colonic stool in the distal sigmoid colon and rectum. No dila charley loops of bowel are present. The bowel gas pattern is normal. 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 The visualized lung bases are clear. There is mild lumbar spondylosis. IMPRESSION: 1. Moderate volume of stool in the distal sigmoid colon and rectum. Reviewed, dictated and finalized at location A.
[2020-04-08 16:40] VITALS: BP 132/60; PULSE 50; RESP 18; TEMP 36.5; O2SAT 100; BMI 27.1
--- NOTE | 2020-04-08 16:49 | PC.NURSE ---
This patient, Juan Chou, was admitted to [facility] Room 224-02. Patient/family oriented to hospital policies and general routines including ID bracelet, bed and alarms, visiting hours, pain management, procedures, bathroom and other care routines, personal items, smoking policy, room service/diet, and visiting hours. Valuables list has been completed. Information on how to activate the Rapid Response Team has been discussed. Patient/Family are encouraged to report perceived risks to care and to ask questions if they do not understand what they are told or what they should do.
[2020-04-08 17:34] VITALS: BMI 27.1
[2020-04-08 20:00] VITALS: PULSE 55; RESP 16; O2SAT 100
[2020-04-08 22:00] VITALS: BP 160/75; PULSE 55; RESP 16; TEMP 36.2; O2SAT 100
[2020-04-08] MEDS: SACCHAROMYCES BOULARDII 250 MG CAPSULE PO (22:05)
[2020-04-08] MEDS: BISACODYL 10 MG SUPPOSITORY RECTAL (22:06)
[2020-04-08] MEDS: DEXAMETHASONE 2 MG TABLET PO (22:06)
[2020-04-08] MEDS: DOCUSATE SODIUM 100 MG CAPSULE PO (22:06)
[2020-04-08] MEDS: HEPARIN SODIUM 5,000 UNITS/ML VIAL 5000 UNITS SUB-Q (22:07)
[2020-04-08] MEDS: FAMOTIDINE 20 MG TABLET PO (22:07)
[2020-04-08] MEDS: SENNOSIDES 8.6 MG TABLET PO (22:09)
[2020-04-08] MEDS: levETIRAcetam 500 MG TABLET 1000 MG PO (22:09)
[2020-04-09 05:16] LABS: Basophils Percent Auto 0.1 % (0.2-1.2); Eosinophils Percent Auto 0.1 % (0-4.4); Hematocrit 29.7 % (37.0-47.0); Hemoglobin 10.2 g/dL (12.0-15.0); Immature Granulocyte Absolute 0.22 K/mm3 (0.00-0.031); Immature Granulocyte Percent A 1.6 % (0-0.5); Lymphocytes Absolute Auto 1.15 K/mm3 (0.9-3.2); Lymphocytes Percent Auto 8.6 % (18.3-44.2); Mean Corpuscular HGB Conc 34.3 g/dl (32-36); Mean Corpuscular Hemoglobin 30.4 pg (26-34); Mean Corpuscular Volume 88.4 fl (80-100); Mean Platelet Volume 9.9 fl (7.4-10.4); Monocytes Percent Auto 7.6 % (2.6-8.5); Nucleated Red Blood Cells Perc 0.1 % (0.0-0.2); Platelet Count Result 212 k/mm3 (150-375); Red Blood Count 3.36 M/mm3 (4.2-5.4); Red Cell Distribution Width 11.8 % (11.5-14.5); White Blood Count 13.4 K/mm3 (4.5-10.0)
[2020-04-09 06:00] VITALS: BP 131/67; PULSE 54; RESP 19; TEMP 36.3; O2SAT 100
[2020-04-09 06:10] LABS: Anion Gap 4 mmol/L (8-16); Blood Urea Nitrogen 25 mg/dL (7-17); Calcium 7.9 mg/dL (8.4-10.2); Carbon Dioxide 26 mmol/L (22-30); Chloride 107 mmol/L (98-107); Estimated CRCL calculation 115 ml/min; Estimated Glomerular Filt Rate > 60; Glucose 115 mg/dL (65-105); Sodium 137 mmol/L (137-145)
[2020-04-09] MEDS: levETIRAcetam 500 MG TABLET 1000 MG PO ×2 (08:37→20:14)
[2020-04-09] MEDS: polyethylene glycoL 3350 17 GM POWD.PACK PO (08:38)
[2020-04-09] MEDS: ROSUVASTATIN 10 MG TABLET PO (08:38)
[2020-04-09] MEDS: DOCUSATE SODIUM 100 MG CAPSULE PO ×2 (08:38→20:14)
[2020-04-09] MEDS: SENNOSIDES 8.6 MG TABLET PO ×2 (08:38→20:17)
[2020-04-09] MEDS: FAMOTIDINE 20 MG TABLET PO ×2 (08:38→20:15)
[2020-04-09] MEDS: dilTIAZem HCL 30 MG TABLET PO (08:38)
[2020-04-09] MEDS: CHOLECALCIFEROL 1,000 UNITS TABLET 2000 UNITS PO (08:38)
[2020-04-09] MEDS: SACCHAROMYCES BOULARDII 250 MG CAPSULE PO ×2 (08:38→17:07)
[2020-04-09] MEDS: HEPARIN SODIUM 5,000 UNITS/ML VIAL 5000 UNITS SUB-Q ×2 (08:39→20:15)
[2020-04-09 08:40] VITALS: PULSE 60
[2020-04-09] MEDS: FLUTICASONE PROPIONATE 0.05% NA SPR 16 GM BTL (*BKC) 1 SPRAY NASAL (08:40)
[2020-04-09] MEDS: DEXAMETHASONE 2 MG TABLET PO ×2 (08:40→17:07)
[2020-04-09] MEDS: AMIODARONE HCL 100 MG TABLET PO (08:40)
--- NOTE | 2020-04-09 11:00 | PM.IMHP ---
H&P: HPI History of Present Illness Date/Time: 04/09/20 15:18 Chief complaint: Brain/Non trauma Narrative: Juan Chou is a 59 year old female the primary rehab impairment category is brain dysfunction/nontraumatic The etiologic diagnosis is right temporal lobe mass. The patient was seen [id number] by this examiner at 11:00 a.m. 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 The the patient reported noticing that she was dropping things about 1 week ago and then approximately 2 days later she began to experience severe nighttime headaches. Additionally she notices that she veers to the left and has number falls. She also reported difficulty with pronunciation while speaking and some word-finding difficulty. 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 She was transferred to [facility] the same day for neurosurgical evaluation. She was started on Keppra, dexamethasone and her aspirin was held. MRI MRA of the head and neck showed the aforementioned right temporal lobe mass with surrounding vasogenic edema, right to left 1.6 millimeter midline shift uncle and subfalcine herniation. The vessels of the head and neck were patent. The patient underwent a right temporal craniotomy and gross total resection of the right temporal lobe lobe lesion on April 04, 2020. Postoperatively the patient has experienced acute postoperative pain, acute blood loss anemia, hemiparesis of the left side, leukocytosis, brain compression and cerebral edema. Her pain is being managed with oral Najib 6 acute blood-loss anemia is stable at 11.8 leukocytosis is in the setting of steroid administration, brain compression and cerebral edema is stable. Hemiparesis is being treated with physical a compression therapy. The patient will continue on Keppra Decadron taper and she will be discharged to rehab on subcutaneous heparin for DVT prophylaxis The patient has not traveled outside the [place] or had contact with someone who is ill that has traveled outside the [place] in the past 21 days. The patient has not traveled to an area of the [place] that is experiencing no transmission of the Coronavirus and has not had close calls personal contact with anyone that has. The patient does not have a fever. Patient is not experiencing lower respiratory illness symptoms. Therapy was initiated at the acute care facility and the patient was transferred to us from [facility] on April 08, 2020. The patient has had major surgery in the last 10 days. Patient has had 2 recent falls without injury. 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 There are to stairs to enter the home her works during the day but the patient states she has friends that could help out while is at work. The patient is a nonsmoker and does not use alcohol or drugs. Next Family history is unrelated to the patient's present illness Prior level of function was totally independent and the patient was ambulating independently without any assistive device Current level of function is as follows Eating is independent, oral care is partial moderate, toileting hygiene E is partial moderate, shower bath is partial moderate, Sineff bodies partial moderate, lower body is partial moderate, footwear is partial moderate, rolling left to right is supervision, sit to lying supervision or touching, sit to stand is
[2020-04-09 12:59] VITALS: BMI 27.1
[2020-04-09 14:00] VITALS: BP 106/60; PULSE 62; RESP 20; TEMP 37.2; O2SAT 99
[2020-04-09 22:00] VITALS: BP 113/59; PULSE 62; RESP 16; TEMP 36.5; O2SAT 98
[2020-04-10 06:00] VITALS: BP 146/73; PULSE 52; RESP 16; TEMP 36.1; O2SAT 98
[2020-04-10] MEDS: HEPARIN SODIUM 5,000 UNITS/ML VIAL 5000 UNITS SUB-Q (08:28)
[2020-04-10] MEDS: dilTIAZem HCL 30 MG TABLET PO (08:28)
[2020-04-10] MEDS: DOCUSATE SODIUM 100 MG CAPSULE PO ×2 (08:28→20:34)
[2020-04-10] MEDS: FAMOTIDINE 20 MG TABLET PO ×2 (08:28→20:33)
[2020-04-10] MEDS: polyethylene glycoL 3350 17 GM POWD.PACK PO (08:28)
[2020-04-10] MEDS: CHOLECALCIFEROL 1,000 UNITS TABLET 2000 UNITS PO (08:29)
[2020-04-10] MEDS: DEXAMETHASONE 2 MG TABLET PO (08:29)
[2020-04-10] MEDS: levETIRAcetam 500 MG TABLET 1000 MG PO ×2 (08:29→20:33)
[2020-04-10] MEDS: FLUTICASONE PROPIONATE 0.05% NA SPR 16 GM BTL (*BKC) 1 SPRAY NASAL (08:29)
[2020-04-10 08:30] VITALS: PULSE 56; RESP 16; O2SAT 98
[2020-04-10] MEDS: ROSUVASTATIN 10 MG TABLET PO (08:30)
[2020-04-10] MEDS: AMIODARONE HCL 100 MG TABLET PO (08:30)
[2020-04-10] MEDS: SACCHAROMYCES BOULARDII 250 MG CAPSULE PO ×2 (08:30→17:28)
[2020-04-10] MEDS: SENNOSIDES 8.6 MG TABLET PO ×2 (08:31→20:33)
--- NOTE | 2020-04-10 09:40 | RPD ---
INDIVIDUALIZED PLAN OF CARE FOR Juan Chou Brief Synthesis of Pre-Admission Screen, Post-Admission Evaluation and Therapy Evaluations: The patient presents to rehab with right temporal lobe mass. Comorbidities include status post right craniotomy and tumor resection, cerebral edema, hemiparesis, acute postoperative pain, acute blood loss anemia, leukocytosis. The complexity of the patient's medical management, nursing, and therapy needs require an inpatient rehab hospital stay with a physician-led interdisciplinary team approach. The patient?s needs will be best met in an intensive program vs. at a lower level of care. The patient requires physician services for neurology services, medical oversight, and coordination of care. Emotional needs will be monitored as depression is a common sequelae of neurological decline. The patient needs physician monitoring and treatment of anemia, perioperative blood loss, leukocytosis, cerebral edema, monitoring for adverse reactions to new medications, monitoring of infection, and pain control. The patient requires nursing services for frequent neuro checks, anticoagulation therapy, medication management and education, pressure relief and skin care management, monitoring of labs, bowel and bladder training, diabetes management and education, IV administration, and fall/safety precautions. Deficits include:ADLs, Balance, Endurance, Family Training/Education, Mobility, Pain Management, ROM, Safety, Speech, Strength, and Transfers. Film Painter/Case Management for: Discharge Planning and Patient/Family Counseling Physical Therapy: 5 days per week for 90 minutes. Treatments may include: Therapeutic Exercise, Gait Training, Neuromuscular Re-education, Transfer Training, Community Reintegration, Bed Mobility, Patient/Family Education, Wheelchair Mobility Group Therapy/Concurrent Therapy Rationales: -Improve attention span during functional activities in a distracted environment. -Enhance problem solving and/or adequate judgment skills during functional activities in a distracted environment. -Promote increased safety awareness in a distracted environment to reduce fall risk with functional tasks, transfers, and ambulation to allow a more safe, self-sufficient return to the home environment. -Improve dynamic balance skills to promote safety and independence with functional activities in a distracted environment for maximum gain. Occupational Therapy: 5 days per week for 90 minutes. Treatments may include: Therapeutic Exercise, Therapeutic Activity, Cognitive Training, Self-Care Transfer Training, Community Reintegration, Home Management, Patient/Family Education, Wheelchair Mobility Training, Energy Conservation Training Group Therapy/Concurrent Therapy Rationales: -Allow therapist to observe and teach generalization and carry-over of skills learned in individual therapy. -Enhance problem solving and sequencing skills during therapeutic activities in a distracted environment. -Promote increased safety awareness in a realistic setting to reduce fall risk with functional tasks due to visual and verbal distractions. -Increase functional level with ADLs, ADL transfers and use of adaptive equipment through therapeutic activities with others while promoting safety to allow a more safe, self-sufficient return home. Medical Prognosis: Good Anticipated Length of Stay: 10 days Rehab Goals: Eating Goal: 06-Independent Oral Hygiene Goal: 06-Independent Toileting Hygiene Goal: 06-Independent Shower/Bathe Self Goal: 06-Independent Upper Body Dressing Goal: 06-Independent Lower Body Dressing Goal: 06-Independent Putting On/Taking Off Footwear Goal: 06-Independent Rolling Left and Right Goal: 06-Independent Sit to Lying Goal: 06-Independent Lying to Sitting on Side of Bed Goal: 06-Independent Sit to Stand Goal: 06-Independent Chair/[id number] Transfer Goal: 06-Independent Toilet Transfer Goal: 06-Independent Car Transfer Goal: 06-
--- NOTE | 2020-04-10 11:40 | WPDNEURORHBP ---
Subjective Date/time seen: 04/10/20 11:40 Interval history: this pleasant 59-year-old is here after having had craniotomy for the right hemispheric mass which probably is meningioma as best I can determine from the referring hospital she is doing fairly well she has some swelling at the right temporal area which is expected the suture is clean and healthy she denies any headache nausea vomiting chest pain shortness of breath fever chills sore throat Review of Systems Review of Systems: All systems reviewed & are unremarkable except as noted in HPI and below Functional Status Ambulation Ability Ability to Ambulate 10 Feet: Standby Assistance Ability to Ambulate 50 Feet With 2 Turns: Standby Assistance Ability to Ambulate 150 Feet: Standby Assistance Ambulation Assistive Devices: None Transfers Ability Ability to Transfer In/Out of Chair: Standby Assistance Exam Narrative: Exam Narrative: patient is awake alert well oriented follows all commands is speech and language functions are normal cranial examination is normal left-sided hemiparesis is improving examination of eyes ear nose throat normal neck is supple carotids or Brudzinski's signs are negative lungs are clear to auscultation cardiac rhythm is normal abdomen is soft not tender and extremities reveal no deformity reflexes are preserved she needs it any assistance in most of the activities of daily living Const: General: cooperative, healthy appearing and well developed Objective Data Vital Signs Vital Signs: Vital Signs - 24 hr 04/09/20 14:00 04/09/20 22:00 04/10/20 06:00 Temperature 37.2 C 36.5 C 36.1 C L Pulse Rate 62 62 52 L Respiratory Rate 20 16 16 Blood Pressure 106/60 113/59 L 146/73 H Pulse Oximetry 99 98 98 04/10/20 08:30 Temperature Pulse Rate 56 L Respiratory Rate 16 Blood Pressure Pulse Oximetry 98 Intake/Output Intake/Output: Intake & Output 04/07/20 04/08/20 04/09/20 04/10/20 23:59 23:59 23:59 23:59 Intake Total 0 720 240 Balance 0 720 240 Meds/Results Medications: Active Medications Generic Name Dose Route Start Last Admin Trade Name Freq PRN Reason Stop Dose Admin Acetaminophen 650 mg 04/08/20 18:35 Tylenol Tablet PO Q4H PRN Pain (Scale Score 1-3) Alprazolam 0.25 mg 04/08/20 18:35 Xanax PO TID PRN Anxiety Amiodarone HCl 100 mg 04/09/20 09:00 04/10/20 08:30 Pacerone PO 100 mg DAILY [facility] Administration Aspirin 81 mg 04/18/20 09:00 Aspirin Ec PO DAILY [facility] Diltiazem HCl 30 mg 04/09/20 09:00 04/10/20 08:28 Cardizem Tab PO 30 mg DAILY [facility] Administration Diphenhydramine HCl 25 mg 04/08/20 18:35 Benadryl Cap PO HS PRN Sleep Docusate Sodium 100 mg 04/08/20 21:00 04/10/20 08:28 Colace Capsule PO 100 mg Q12HR [facility] Administration Famotidine 20 mg 04/08/20 21:00 04/10/20 08:28 Pepcid PO 20 mg Q12HR [facility] Administration Fluticasone Propionate 1 spray 04/09/20 09:00 04/10/20 08:29 Flonase 0.05% Nasal [place] NASAL 1 spray DAILY [facility] Administration Folic Acid/Cyanocobalamin/pyridoxin 1 tab 04/09/20 09:00 04/10/20 08:29 Foltx Tablet BY MOUTH 05/09/20 09:01 1 tab DAILY [facility] Administration Heparin Sodium (Porcine) 5,000 units 04/08/20 21:00 04/10/20 08:28 Heparin Sodium SUB-Q 5,000 units Q12HR [facility] Administration Levetiracetam 1,000 mg 04/08/20 21:00 04/10/20 08:29 Keppra Tablet PO 1,000 mg Q12HR [facility] Administration Oxycodone HCl 5 mg 04/08/20 18:35 Roxicodone Ir Tablet PO Q4H PRN Pain (Scale Score 4-6) Polyethylene Glycol 17 gm 04/09/20 09:00 04/10/20 08:28 Miralax PO 17 gm DAILY [facility] Administration Rosuvastatin Calcium 10 mg 04/09/20 09:00 04/10/20 08:30 Crestor PO 10 mg DAILY [facility] Administration Saccharomyces Boulardii 250 mg 04/08/20 17:00 04/10/20 08:30 Florastor PO 250 mg BID [facility] Administration Senna 8.6 mg 04/08/20 21:00
[2020-04-10 14:00] VITALS: BP 105/65; PULSE 70; RESP 18; TEMP 36.7; O2SAT 100
[2020-04-10 22:00] VITALS: BP 127/71; PULSE 59; RESP 18; TEMP 36.4; O2SAT 99
[2020-04-11 06:00] VITALS: BP 118/54; PULSE 55; RESP 18; TEMP 36.9; O2SAT 100
[2020-04-11] MEDS: HEPARIN SODIUM 5,000 UNITS/ML VIAL 5000 UNITS SUB-Q ×2 (09:17→20:09)
[2020-04-11] MEDS: dilTIAZem HCL 30 MG TABLET PO (09:17)
[2020-04-11] MEDS: levETIRAcetam 500 MG TABLET 1000 MG PO ×2 (09:17→20:09)
[2020-04-11] MEDS: FLUTICASONE PROPIONATE 0.05% NA SPR 16 GM BTL (*BKC) 1 SPRAY NASAL (09:17)
[2020-04-11] MEDS: SACCHAROMYCES BOULARDII 250 MG CAPSULE PO ×2 (09:17→17:34)
[2020-04-11 09:18] VITALS: PULSE 58
[2020-04-11] MEDS: ROSUVASTATIN 10 MG TABLET PO (09:18)
[2020-04-11] MEDS: SENNOSIDES 8.6 MG TABLET PO ×2 (09:18→20:09)
[2020-04-11] MEDS: AMIODARONE HCL 100 MG TABLET PO (09:18)
[2020-04-11] MEDS: CHOLECALCIFEROL 1,000 UNITS TABLET 2000 UNITS PO (09:18)
[2020-04-11] MEDS: FAMOTIDINE 20 MG TABLET PO ×2 (09:19→20:09)
[2020-04-11] MEDS: DOCUSATE SODIUM 100 MG CAPSULE PO ×2 (09:19→20:09)
[2020-04-11] MEDS: polyethylene glycoL 3350 17 GM POWD.PACK PO (09:19)
[2020-04-11 09:25] VITALS: PULSE 58; RESP 18; O2SAT 100
--- NOTE | 2020-04-11 13:51 | WPDNEURORHBP ---
Subjective Date/time seen: 04/11/20 13:51 Interval history: this 59-year-old is here after removal of a mass from the right cerebral hemisphere primarily involving the temporal suspected to be a meningioma she is doing remarkably well has a headache nausea vomiting chest pain shortness of breath fever chills sore throat days little swelling around the temporal area where the craniotomy site is however is not increasing and is not causing any discomfort Review of Systems Review of Systems: All systems reviewed & are unremarkable except as noted in HPI and below Functional Status Ambulation Ability Ability to Ambulate 10 Feet: Independent Ability to Ambulate 50 Feet With 2 Turns: Independent Ability to Ambulate 150 Feet: Standby Assistance Ambulation Assistive Devices: None Transfers Ability Ability to Transfer In/Out of Chair: Independent Exam Narrative: Exam Narrative: patient is awake alert well oriented with normal speech and language function normal cranial examination subtle left-sided weakness needing assistance of the to his daily living reflexes preserved Babinski sign is negative Romberg test is positive Examination of the cranium reveals the craniotomy site to be clean and healthy sutures are intact no drainage noted there is little swelling in the right adventism ENT examination is normal no drainage is noted from the right ear in particular Neck is supple next Lungs are clear to auscultation Cardiovascular examination is negative Abdomen is soft not tender Extremities revealed or deformities Objective Data Vital Signs Vital Signs: Vital Signs - 24 hr 04/10/20 14:00 04/10/20 22:00 04/11/20 06:00 Temperature 36.7 C 36.4 C 36.9 C Pulse Rate 70 59 L 55 L Respiratory Rate 18 18 18 Blood Pressure 105/65 127/71 118/54 L Pulse Oximetry 100 99 100 04/11/20 09:18 04/11/20 09:25 Temperature Pulse Rate 58 L 58 L Respiratory Rate 18 Blood Pressure Pulse Oximetry 100 Intake/Output Intake/Output: Intake & Output 04/08/20 04/09/20 04/10/20 04/11/20 23:59 23:59 23:59 23:59 Intake Total 0 720 720 240 Balance 0 720 720 240 Meds/Results Medications: Active Medications Generic Name Dose Route Start Last Admin Trade Name Freq PRN Reason Stop Dose Admin Acetaminophen 650 mg 04/08/20 18:35 Tylenol Tablet PO Q4H PRN Pain (Scale Score 1-3) Alprazolam 0.25 mg 04/08/20 18:35 Xanax PO TID PRN Anxiety Amiodarone HCl 100 mg 04/09/20 09:00 04/11/20 09:18 Pacerone PO 100 mg DAILY [facility] Administration Aspirin 81 mg 04/18/20 09:00 Aspirin Ec PO DAILY [facility] Diltiazem HCl 30 mg 04/09/20 09:00 04/11/20 09:17 Cardizem Tab PO 30 mg DAILY [facility] Administration Diphenhydramine HCl 25 mg 04/08/20 18:35 Benadryl Cap PO HS PRN Sleep Docusate Sodium 100 mg 04/08/20 21:00 04/11/20 09:19 Colace Capsule PO 100 mg Q12HR [facility] Administration Famotidine 20 mg 04/08/20 21:00 04/11/20 09:19 Pepcid PO 20 mg Q12HR [facility] Administration Fluticasone Propionate 1 spray 04/09/20 09:00 04/11/20 09:17 Flonase 0.05% Nasal [place] NASAL 1 spray DAILY [facility] Administration Folic Acid/Cyanocobalamin/pyridoxin 1 tab 04/09/20 09:00 04/11/20 09:19 Foltx Tablet BY MOUTH 05/09/20 09:01 1 tab DAILY [facility] Administration Heparin Sodium (Porcine) 5,000 units 04/08/20 21:00 04/11/20 09:17 Heparin Sodium SUB-Q 5,000 units Q12HR [facility] Administration Levetiracetam 1,000 mg 04/08/20 21:00 04/11/20 09:17 Keppra Tablet PO 1,000 mg Q12HR [facility] Administration Oxycodone HCl 5 mg 04/08/20 18:35 Roxicodone Ir Tablet PO Q4H PRN Pain (Scale Score 4-6) Polyethylene Glycol 17 gm 04/09/20 09:00 04/11/20 09:19 Miralax PO 17 gm DAILY [facility] Administration Rosuvastatin Calcium 10 mg 04/09/20 09:00 04/11/20 09:18 Crestor PO 10 mg DAILY [facility] Administration Saccharomyces Boulardii 250 mg
[2020-04-11 14:00] VITALS: BP 111/57; PULSE 68; RESP 20; TEMP 36.7; O2SAT 100
[2020-04-11 20:27] VITALS: BP 115/75; PULSE 56; RESP 18; TEMP 36.9; O2SAT 98
[2020-04-12 04:58] VITALS: BP 103/58; PULSE 60; RESP 18; TEMP 36.8; O2SAT 99
[2020-04-12] MEDS: CHOLECALCIFEROL 1,000 UNITS TABLET 2000 UNITS PO (08:57)
[2020-04-12] MEDS: SACCHAROMYCES BOULARDII 250 MG CAPSULE PO ×2 (08:57→17:45)
[2020-04-12] MEDS: ROSUVASTATIN 10 MG TABLET PO (08:57)
[2020-04-12] MEDS: DOCUSATE SODIUM 100 MG CAPSULE PO ×2 (08:57→20:05)
[2020-04-12] MEDS: dilTIAZem HCL 30 MG TABLET PO (08:57)
[2020-04-12 08:58] VITALS: PULSE 60
[2020-04-12] MEDS: AMIODARONE HCL 100 MG TABLET PO (08:58)
[2020-04-12] MEDS: polyethylene glycoL 3350 17 GM POWD.PACK PO (08:58)
[2020-04-12] MEDS: SENNOSIDES 8.6 MG TABLET PO ×2 (08:58→20:06)
[2020-04-12] MEDS: FLUTICASONE PROPIONATE 0.05% NA SPR 16 GM BTL (*BKC) 1 SPRAY NASAL (08:58)
[2020-04-12] MEDS: FAMOTIDINE 20 MG TABLET PO ×2 (08:58→20:06)
[2020-04-12] MEDS: levETIRAcetam 500 MG TABLET 1000 MG PO ×2 (08:58→20:05)
[2020-04-12] MEDS: HEPARIN SODIUM 5,000 UNITS/ML VIAL 5000 UNITS SUB-Q ×2 (09:00→20:06)
--- NOTE | 2020-04-12 13:50 | WPDNEURORHBP ---
Subjective Date/time seen: 04/12/20 13:50 59 YEARS OLD LADY IS STATUS POST REMOVAL OF THE MENINGIOMA AT PRESENT INVOLVED IN THE PHYSICAL THERAPY AND OCCUPATIONAL THERAPY ROUTINE LABS REVEALS TSH OF 8.1 WITH T4 OF 0.73, CALCIUM 7.9 INCREASING WBCS OF 13.4 WITH HEMOGLOBIN ONLY 10.2 Review of Systems Review of Systems: All systems reviewed & are unremarkable except as noted in HPI and below Functional Status Ambulation Ability Ability to Ambulate 10 Feet: Independent Ability to Ambulate 50 Feet With 2 Turns: Independent Ability to Ambulate 150 Feet: Independent Ambulation Assistive Devices: None Transfers Ability Ability to Transfer In/Out of Chair: Contact Guard Exam Narrative: Exam Narrative: EXAMINATION REVEALS AWAKE ALERT ORIENTED X3 WITH NORMAL FULL SPEECH AND LEFT-SIDED WEAKNESS IN ADDITION THE CRANIOTOMY SITE CLEAN AND HEALTHY THERE IS NO EVIDENCE OF ANY DRAINAGE FROM THE NOSE AND THROAT HEART REGULAR LUNGS CLEAR ABDOMEN SOFT Objective Data Vital Signs Vital Signs: Vital Signs - 24 hr 04/11/20 14:00 04/11/20 20:27 04/12/20 04:58 Temperature 36.7 C 36.9 C 36.8 C Pulse Rate 68 56 L 60 Respiratory Rate 20 18 18 Blood Pressure 111/57 L 115/75 103/58 L Pulse Oximetry 100 98 99 04/12/20 08:58 Temperature Pulse Rate 60 Respiratory Rate Blood Pressure Pulse Oximetry Intake/Output Intake/Output: Intake & Output 04/09/20 04/10/20 04/11/20 04/12/20 23:59 23:59 23:59 23:59 Intake Total 720 720 720 120 Balance 720 720 720 120 Meds/Results Medications: Active Medications Generic Name Dose Route Start Last Admin Trade Name Freq PRN Reason Stop Dose Admin Acetaminophen 650 mg 04/08/20 18:35 Tylenol Tablet PO Q4H PRN Pain (Scale Score 1-3) Alprazolam 0.25 mg 04/08/20 18:35 Xanax PO TID PRN Anxiety Amiodarone HCl 100 mg 04/09/20 09:00 04/12/20 08:58 Pacerone PO 100 mg DAILY [facility] Administration Aspirin 81 mg 04/18/20 09:00 Aspirin Ec PO DAILY [facility] Diltiazem HCl 30 mg 04/09/20 09:00 04/12/20 08:57 Cardizem Tab PO 30 mg DAILY [facility] Administration Diphenhydramine HCl 25 mg 04/08/20 18:35 Benadryl Cap PO HS PRN Sleep Docusate Sodium 100 mg 04/08/20 21:00 04/12/20 08:57 Colace Capsule PO 100 mg Q12HR [facility] Administration Famotidine 20 mg 04/08/20 21:00 04/12/20 08:58 Pepcid PO 20 mg Q12HR [facility] Administration Fluticasone Propionate 1 spray 04/09/20 09:00 04/12/20 08:58 Flonase 0.05% Nasal [place] NASAL 1 spray DAILY [facility] Administration Folic Acid/Cyanocobalamin/pyridoxin 1 tab 04/09/20 09:00 04/12/20 08:57 Foltx Tablet BY MOUTH 05/09/20 09:01 1 tab DAILY [facility] Administration Heparin Sodium (Porcine) 5,000 units 04/08/20 21:00 04/12/20 09:00 Heparin Sodium SUB-Q 5,000 units Q12HR [facility] Administration Levetiracetam 1,000 mg 04/08/20 21:00 04/12/20 08:58 Keppra Tablet PO 1,000 mg Q12HR [facility] Administration Oxycodone HCl 5 mg 04/08/20 18:35 Roxicodone Ir Tablet PO Q4H PRN Pain (Scale Score 4-6) Polyethylene Glycol 17 gm 04/09/20 09:00 04/12/20 08:58 Miralax PO 17 gm DAILY [facility] Administration Rosuvastatin Calcium 10 mg 04/09/20 09:00 04/12/20 08:57 Crestor PO 10 mg DAILY [facility] Administration Saccharomyces Boulardii 250 mg 04/08/20 17:00 04/12/20 08:57 Florastor PO 250 mg BID [facility] Administration Senna 8.6 mg 04/08/20 21:00 04/12/20 08:58 Senokot Tablet PO 8.6 mg Q12HR [facility] Administration Vitamin D 2,000 units 04/09/20 09:00 04/12/20 08:57 Vitamin D PO 05/09/20 09:01 2,000 units DAILY [facility] Administration Radiology Results: ITS Impressions Abdomen X-Ray 04/08/20 19:29 IMPRESSION: 1. Moderate volume of stool in the distal sigmoid colon and rectum. Progress Note: A&P Assessment and Plan (1) Minimal cognitive impairment: Code(s): G31.84 - Mild cognitive impairment, so st
[2020-04-12 14:00] VITALS: BP 112/73; PULSE 78; RESP 16; TEMP 36.6; O2SAT 99
[2020-04-12 21:08] VITALS: BP 122/68; PULSE 60; RESP 18; TEMP 36.8; O2SAT 100
[2020-04-13 05:12] VITALS: BP 109/60; PULSE 65; RESP 18; TEMP 36.8; O2SAT 98
[2020-04-13 08:00] VITALS: PULSE 65; RESP 18; O2SAT 98
[2020-04-13] MEDS: DOCUSATE SODIUM 100 MG CAPSULE PO ×2 (09:18→20:33)
[2020-04-13] MEDS: dilTIAZem HCL 30 MG TABLET PO (09:18)
[2020-04-13] MEDS: FAMOTIDINE 20 MG TABLET PO ×2 (09:18→20:32)
[2020-04-13] MEDS: ROSUVASTATIN 10 MG TABLET PO (09:18)
[2020-04-13] MEDS: CHOLECALCIFEROL 1,000 UNITS TABLET 2000 UNITS PO (09:18)
[2020-04-13] MEDS: levETIRAcetam 500 MG TABLET 1000 MG PO ×2 (09:18→20:33)
[2020-04-13 09:19] VITALS: PULSE 65
[2020-04-13] MEDS: SACCHAROMYCES BOULARDII 250 MG CAPSULE PO ×2 (09:19→17:25)
[2020-04-13] MEDS: polyethylene glycoL 3350 17 GM POWD.PACK PO (09:19)
[2020-04-13] MEDS: SENNOSIDES 8.6 MG TABLET PO ×2 (09:19→20:33)
[2020-04-13] MEDS: AMIODARONE HCL 100 MG TABLET PO (09:19)
[2020-04-13] MEDS: FLUTICASONE PROPIONATE 0.05% NA SPR 16 GM BTL (*BKC) 1 SPRAY NASAL (09:20)
[2020-04-13] MEDS: HEPARIN SODIUM 5,000 UNITS/ML VIAL 5000 UNITS SUB-Q ×3 (09:20→20:35)
[2020-04-13 14:00] VITALS: BP 107/83; PULSE 74; RESP 20; TEMP 36.7; O2SAT 98
[2020-04-13 22:00] VITALS: BP 126/68; PULSE 68; RESP 20; TEMP 37.2; O2SAT 100
[2020-04-14 06:00] VITALS: BP 115/57; PULSE 54; RESP 18; TEMP 36.9; O2SAT 100
[2020-04-14 08:47] VITALS: PULSE 60
[2020-04-14] MEDS: levETIRAcetam 500 MG TABLET 1000 MG PO ×2 (08:47→20:22)
[2020-04-14] MEDS: AMIODARONE HCL 100 MG TABLET PO (08:47)
[2020-04-14] MEDS: SACCHAROMYCES BOULARDII 250 MG CAPSULE PO ×2 (08:47→17:07)
[2020-04-14] MEDS: HEPARIN SODIUM 5,000 UNITS/ML VIAL 5000 UNITS SUB-Q ×2 (08:47→20:22)
[2020-04-14] MEDS: CHOLECALCIFEROL 1,000 UNITS TABLET 2000 UNITS PO (08:47)
[2020-04-14] MEDS: FAMOTIDINE 20 MG TABLET PO ×2 (08:47→20:22)
[2020-04-14] MEDS: ROSUVASTATIN 10 MG TABLET PO (08:47)
[2020-04-14] MEDS: dilTIAZem HCL 30 MG TABLET PO (08:48)
[2020-04-14] MEDS: DOCUSATE SODIUM 100 MG CAPSULE PO ×2 (08:48→20:22)
[2020-04-14] MEDS: FLUTICASONE PROPIONATE 0.05% NA SPR 16 GM BTL (*BKC) 1 SPRAY NASAL (08:48)
[2020-04-14] MEDS: polyethylene glycoL 3350 17 GM POWD.PACK PO (08:49)
[2020-04-14] MEDS: SENNOSIDES 8.6 MG TABLET PO ×2 (08:50→20:22)
--- NOTE | 2020-04-14 10:19 | WPDNEURORHBP ---
Subjective Date/time seen: 04/14/20 10:19 59 YEARS OLD WITH HISTORY OF REMOVAL OF THE MENINGIOMA HAS BEEN INVOLVED IN THE PHYSICAL THERAPY AND OCCUPATIONAL THERAPY WITHOUT ANY SPECIFIC COMPLAINTS LAB REMAINS STABLE ABLE TO AMBULATE UP TO 150FT INDEPENDENTLY WITH CONTACT GUARD ON TRANSFER IN AND OUT OF CHAIR Review of Systems Review of Systems: All systems reviewed & are unremarkable except as noted in HPI and below Functional Status Ambulation Ability Ability to Ambulate 10 Feet: Independent Ability to Ambulate 50 Feet With 2 Turns: Independent Ability to Ambulate 150 Feet: Independent Ambulation Assistive Devices: None Transfers Ability Ability to Transfer In/Out of Chair: Independent Exam Narrative: Exam Narrative: EXAMINATION REVEALS HER TO BE AWAKE ALERT ORIENTED X3, SPEECH NORMAL WITH NO DYSPHASIA NO DYSARTHRIA ,EAR NOSE THROAT EXAMINATION NORMAL, WITH NO DRAINAGE FROM THE MUCOUS MEMBRANES,HEART REGULAR WITH NO MURMUR, LUNGS CLEAR ,ABDOMEN SOFT AND NEUROLOGICAL EXAMINATION UNCHANGED Objective Data Vital Signs Vital Signs: Vital Signs - 24 hr 04/13/20 14:00 04/13/20 22:00 04/14/20 06:00 Temperature 36.7 C 37.2 C 36.9 C Pulse Rate 74 68 54 L Respiratory Rate 18 Blood Pressure 107/83 126/68 115/57 L Pulse Oximetry 98 100 100 04/14/20 08:47 Temperature Pulse Rate 60 Respiratory Rate Blood Pressure Pulse Oximetry Intake/Output Intake/Output: Intake & Output 04/11/20 04/12/20 04/13/20 04/14/20 23:59 23:59 23:59 23:59 Intake Total 720 600 720 240 Balance 720 600 720 240 Meds/Results Medications: Active Medications Generic Name Dose Route Start Last Admin Trade Name Filemonq PRN Reason Stop Dose Admin Acetaminophen 650 mg 04/08/20 18:35 Tylenol Tablet PO Q4H PRN Pain (Scale Score 1-3) Alprazolam 0.25 mg 04/08/20 18:35 Xanax PO TID PRN Anxiety Amiodarone HCl 100 mg 04/09/20 09:00 04/14/20 08:47 Pacerone PO 100 mg DAILY [facility] Administration Aspirin 81 mg 04/18/20 09:00 Aspirin Ec PO DAILY [facility] Diltiazem HCl 30 mg 04/09/20 09:00 04/14/20 08:48 Cardizem Tab PO 30 mg DAILY [facility] Administration Diphenhydramine HCl 25 mg 04/08/20 18:35 Benadryl Cap PO HS PRN Sleep Docusate Sodium 100 mg 04/08/20 21:00 04/14/20 08:48 Colace Capsule PO 100 mg Q12HR [facility] Administration Famotidine 20 mg 04/08/20 21:00 04/14/20 08:47 Pepcid PO 20 mg Q12HR [facility] Administration Fluticasone Propionate 1 spray 04/09/20 09:00 04/14/20 08:48 Flonase 0.05% Nasal [place] NASAL 1 spray DAILY [facility] Administration Folic Acid/Cyanocobalamin/pyridoxin 1 tab 04/09/20 09:00 04/14/20 08:47 Foltx Tablet BY MOUTH 05/09/20 09:01 1 tab DAILY [facility] Administration Heparin Sodium (Porcine) 5,000 units 04/08/20 21:00 04/14/20 08:47 Heparin Sodium SUB-Q 5,000 units Q12HR [facility] Administration Levetiracetam 1,000 mg 04/08/20 21:00 04/14/20 08:47 Keppra Tablet PO 1,000 mg Q12HR [facility] Administration Oxycodone HCl 5 mg 04/08/20 18:35 Roxicodone Ir Tablet PO Q4H PRN Pain (Scale Score 4-6) Polyethylene Glycol 17 gm 04/09/20 09:00 04/14/20 08:49 Miralax PO 17 gm DAILY [facility] Administration Rosuvastatin Calcium 10 mg 04/09/20 09:00 04/14/20 08:47 Crestor PO 10 mg DAILY [facility] Administration Saccharomyces Boulardii 250 mg 04/08/20 17:00 04/14/20 08:47 Florastor PO 250 mg BID [facility] Administration Senna 8.6 mg 04/08/20 21:00 04/14/20 08:50 Senokot Tablet PO 8.6 mg Q12HR [facility] Administration Vitamin D 2,000 units 04/09/20 09:00 04/14/20 08:47 Vitamin D PO 05/09/20 09:01 2,000 units DAILY [facility] Administration Radiology Results: ITS Impressions Abdomen X-Ray 04/08/20 19:29 IMPRESSION: 1. Moderate volume of stool in the distal sigmoid colon and rectum. Progress Note: A&P Assessment and Plan (1) Minimal cognitive impairme
[2020-04-14 11:29] LABS: Basophils Percent Auto 0.2 % (0.2-1.2); Eosinophils Absolute Auto 0.1 K/mm3 (0-0.3); Eosinophils Percent Auto 1.1 % (0-4.4); Hematocrit 34.4 % (37.0-47.0); Hemoglobin 11.7 g/dL (12.0-15.0); Immature Granulocyte Absolute 0.11 K/mm3 (0.00-0.031); Immature Granulocyte Percent A 1.2 % (0-0.5); Lymphocytes Absolute Auto 1.49 K/mm3 (0.9-3.2); Lymphocytes Percent Auto 15.9 % (18.3-44.2); Mean Corpuscular Volume 91.2 fl (80-100); Mean Platelet Volume 9.7 fl (7.4-10.4); Monocytes Absolute Auto 0.8 K/mm3 (0.1-0.6); Neutrophils Absolute Auto 6.9 K/mm3 (1.3-6.7); Neutrophils Percent Auto 73.6 % (45.5-73.1); Platelet Count Result 260 k/mm3 (150-375); Red Blood Count 3.77 M/mm3 (4.2-5.4); Red Cell Distribution Width 12.4 % (11.5-14.5); White Blood Count 9.4 K/mm3 (4.5-10.0)
[2020-04-14 14:00] VITALS: BP 119/75; PULSE 69; RESP 20; TEMP 36.9; O2SAT 100
[2020-04-14 22:00] VITALS: BP 139/82; PULSE 68; RESP 19; TEMP 36.4; O2SAT 100
[2020-04-15 06:00] VITALS: BP 128/66; PULSE 62; RESP 17; TEMP 36.7; O2SAT 100
[2020-04-15 08:07] VITALS: PULSE 62
[2020-04-15] MEDS: AMIODARONE HCL 100 MG TABLET PO (08:07)
[2020-04-15] MEDS: FLUTICASONE PROPIONATE 0.05% NA SPR 16 GM BTL (*BKC) 1 SPRAY NASAL (08:07)
[2020-04-15] MEDS: levETIRAcetam 500 MG TABLET 1000 MG PO ×2 (08:08→20:22)
[2020-04-15] MEDS: CHOLECALCIFEROL 1,000 UNITS TABLET 2000 UNITS PO (08:08)
[2020-04-15] MEDS: FAMOTIDINE 20 MG TABLET PO ×2 (08:08→20:23)
[2020-04-15] MEDS: DOCUSATE SODIUM 100 MG CAPSULE PO ×2 (08:08→20:23)
[2020-04-15] MEDS: HEPARIN SODIUM 5,000 UNITS/ML VIAL 5000 UNITS SUB-Q ×2 (08:08→20:23)
[2020-04-15] MEDS: dilTIAZem HCL 30 MG TABLET PO (08:08)
[2020-04-15] MEDS: polyethylene glycoL 3350 17 GM POWD.PACK PO (08:09)
[2020-04-15] MEDS: SACCHAROMYCES BOULARDII 250 MG CAPSULE PO ×2 (08:09→18:20)
[2020-04-15] MEDS: ROSUVASTATIN 10 MG TABLET PO (08:09)
[2020-04-15] MEDS: SENNOSIDES 8.6 MG TABLET PO ×2 (08:24→20:23)
--- NOTE | 2020-04-15 11:17 | PCNFU ---
Nutrition Follow-Up Complete: No nutrition diagnosis at this time. Patient to consume 75% of meals or greater. Goal: achieved Pt current nutrition is regular diet, which is appropriate. Nutrition recommendation: continue consuming smaller portions, more frequently throughout day to promote brain and GI health; and fiber additive to fluids or smoothie upon return home. Last recorded weight is 76.1 kg, recommend recording updated weight before discharge. Bowel Motility: improved, pt. currently on stool softener. Last BM recorded from nurse spreadsheet on 04/14. Labs Reviewed: Hgb (11.7), Hct (34.4), no other new labs available. Meds Noted: Senokot, Miralax, Foltx, Colace, Roxicodone, Xanax Additional Notes: Integumentary integrity is WNL. Will continue to monitor progression of goal. Follow up every 7 days.
--- NOTE | 2020-04-15 13:31 | WPDNEURORHBP ---
Subjective Date/time seen: 04/15/20 13:31 Interval history: this 59-year-old is here after removal of what is presumed to be rather large meningioma which had the mass effect to begin with the patient has done well in over rehab program the swelling of the right temporal area from the craniotomy site is clean and healthy the incision is clean and healthy she denies any headache nausea vomiting chest pain shortness of breath fever chills sore throat she is slated to be discharged tomorrow with instructions to follow up with the surgeon and the primary care physician Review of Systems Review of Systems: All systems reviewed & are unremarkable except as noted in HPI and below Functional Status Ambulation Ability Ability to Ambulate 10 Feet: Independent Ability to Ambulate 50 Feet With 2 Turns: Independent Ability to Ambulate 150 Feet: Independent Ambulation Assistive Devices: None Transfers Ability Ability to Transfer In/Out of Chair: Independent Exam Narrative: Exam Narrative: she is awake and alert well oriented to time place and person the cognitive deficit she has had postoperatively has almost resolved cranial examination is unremarkable the weakness she has had is also almost completely resolved and she will be in the independent living program prior to her discharge tomorrow with instructions to be careful and prevent fall Apart from the crania craniotomy site the head is normocephalic [place] nose throat normal neck is supple Cardizem present ski signs are negative rather Kernig's and Brudzinski signs are negative lungs are clear to auscultation abdomen is soft not tender extremities reveal no deformities Objective Data Vital Signs Vital Signs: Vital Signs - 24 hr 04/14/20 14:00 04/14/20 22:00 04/15/20 06:00 Temperature 36.9 C 36.4 C 36.7 C Pulse Rate 69 68 62 Respiratory Rate 20 19 17 Blood Pressure 119/75 139/82 128/66 Pulse Oximetry 100 100 100 04/15/20 08:07 Temperature Pulse Rate 62 Respiratory Rate Blood Pressure Pulse Oximetry Intake/Output Intake/Output: Intake & Output 04/12/20 04/13/20 04/14/20 04/15/20 23:59 23:59 23:59 23:59 Intake Total 600 720 720 240 Balance 600 720 720 240 Meds/Results Medications: Active Medications Generic Name Dose Route Start Last Admin Trade Name Freq PRN Reason Stop Dose Admin Acetaminophen 650 mg 04/08/20 18:35 Tylenol Tablet PO Q4H PRN Pain (Scale Score 1-3) Alprazolam 0.25 mg 04/08/20 18:35 Xanax PO TID PRN Anxiety Amiodarone HCl 100 mg 04/09/20 09:00 04/15/20 08:07 Pacerone PO 100 mg DAILY CAMILA Administration Aspirin 81 mg 04/18/20 09:00 Aspirin Ec PO DAILY CAMILA Diltiazem HCl 30 mg 04/09/20 09:00 04/15/20 08:08 Cardizem Tab PO 30 mg DAILY CAMILA Administration Diphenhydramine HCl 25 mg 04/08/20 18:35 Benadryl Cap PO HS PRN Sleep Docusate Sodium 100 mg 04/08/20 21:00 04/15/20 08:08 Colace Capsule PO 100 mg Q12HR CAMILA Administration Famotidine 20 mg 04/08/20 21:00 04/15/20 08:08 Pepcid PO 20 mg Q12HR CAMILA Administration Fluticasone Propionate 1 spray 04/09/20 09:00 04/15/20 08:07 Flonase 0.05% Nasal [place] NASAL 1 spray DAILY CAMILA Administration Folic Acid/Cyanocobalamin/pyridoxin 1 tab 04/09/20 09:00 04/15/20 08:08 Foltx Tablet BY MOUTH 05/09/20 09:01 1 tab DAILY CAMILA Administration Heparin Sodium (Porcine) 5,000 units 04/08/20 21:00 04/15/20 08:08 Heparin Sodium SUB-Q 5,000 units Q12HR CAMILA Administration Levetiracetam 1,000 mg 04/08/20 21:00 04/15/20 08:08 Keppra Tablet PO 1,000 mg Q12HR CAMILA Administration Oxycodone HCl 5 mg 04/08/20 18:35 Roxicodone Ir Tablet PO Q4H PRN Pain (Scale Score 4-6) Polyethylene Glycol 17 gm 04/09/20 09:00 04/15/20 08:09 Miralax PO 17 gm DAILY CAMILA Administration Rosuvastatin Calcium 10 mg 04/09/20 09:00 04/15/20 08:09 Crestor PO
[2020-04-15 14:00] VITALS: BP 118/65; PULSE 79; RESP 20; TEMP 36.9; O2SAT 100
--- NOTE | 2020-04-15 14:52 | PCNSR ---
On 04/15/20, the student, Chanel Hayward, provided care and completed [facility] documentation on this patient. I have reviewed the student's documentation and agree with the findings.
[2020-04-15 22:00] VITALS: BP 121/87; PULSE 103; RESP 18; TEMP 37; O2SAT 100
[2020-04-16 04:57] LABS: Basophils Percent Auto 0.4 % (0.2-1.2); Eosinophils Absolute Auto 0.1 K/mm3 (0-0.3); Eosinophils Percent Auto 1.5 % (0-4.4); Hematocrit 36.4 % (37.0-47.0); Immature Granulocyte Absolute 0.08 K/mm3 (0.00-0.031); Immature Granulocyte Percent A 0.9 % (0-0.5); Lymphocytes Absolute Auto 2.39 K/mm3 (0.9-3.2); Lymphocytes Percent Auto 28.2 % (18.3-44.2); Mean Corpuscular Volume 94.1 fl (80-100); Mean Platelet Volume 9.7 fl (7.4-10.4); Monocytes Absolute Auto 0.6 K/mm3 (0.1-0.6); Monocytes Percent Auto 6.7 % (2.6-8.5); Neutrophils Absolute Auto 5.3 K/mm3 (1.3-6.7); Neutrophils Percent Auto 62.3 % (45.5-73.1); Platelet Count Result 252 k/mm3 (150-375); Red Blood Count 3.87 M/mm3 (4.2-5.4); Red Cell Distribution Width 12.8 % (11.5-14.5); White Blood Count 8.5 K/mm3 (4.5-10.0)
[2020-04-16 05:08] LABS: Anion Gap 5 mmol/L (8-16); Blood Urea Nitrogen 22 mg/dL (7-17); Calcium 9.1 mg/dL (8.4-10.2); Carbon Dioxide 26 mmol/L (22-30); Chloride 108 mmol/L (98-107); Estimated CRCL calculation 70 ml/min; Estimated Glomerular Filt Rate > 60; Glucose 98 mg/dL (65-105); Potassium 4.1 mmol/L (3.4-5.0); Sodium 139 mmol/L (137-145)
[2020-04-16 06:00] VITALS: BP 121/58; PULSE 62; RESP 14; TEMP 36.6; O2SAT 100
[2020-04-16 08:45] VITALS: PULSE 68
[2020-04-16] MEDS: AMIODARONE HCL 100 MG TABLET PO (08:45)
[2020-04-16] MEDS: SENNOSIDES 8.6 MG TABLET PO (08:45)
[2020-04-16] MEDS: SACCHAROMYCES BOULARDII 250 MG CAPSULE PO (08:45)
[2020-04-16] MEDS: ROSUVASTATIN 10 MG TABLET PO (08:45)
[2020-04-16] MEDS: FAMOTIDINE 20 MG TABLET PO (08:45)
[2020-04-16] MEDS: DOCUSATE SODIUM 100 MG CAPSULE PO (08:45)
[2020-04-16] MEDS: dilTIAZem HCL 30 MG TABLET PO (08:45)
[2020-04-16] MEDS: levETIRAcetam 500 MG TABLET 1000 MG PO (08:46)
[2020-04-16] MEDS: CHOLECALCIFEROL 1,000 UNITS TABLET 2000 UNITS PO (08:46)
[2020-04-16] MEDS: polyethylene glycoL 3350 17 GM POWD.PACK PO (08:47)
[2020-04-16] MEDS: HEPARIN SODIUM 5,000 UNITS/ML VIAL 5000 UNITS SUB-Q (08:47)
[2020-04-16] MEDS: FLUTICASONE PROPIONATE 0.05% NA SPR 16 GM BTL (*BKC) 1 SPRAY NASAL (08:47)
--- NOTE | 2020-04-19 15:05 | PM.DS ---
DS: Admitting Diagnosis Admitting Diagnosis Admitting Diagnosis: Brain/Non trauma DS: Discharge Diagnosis Discharge Diagnosis (1) Minimal cognitive impairment: Code(s): G31.84 - Mild cognitive impairment, so stated Status: Acute (2) Left hemiparesis: Code(s): G81.94 - Hemiplegia, unspecified affecting left nondominant side Status: Acute (3) Status post craniotomy: Code(s): Z98.890 - Other specified postprocedural states Status: Acute (4) Right temporal lobe mass: Code(s): G93.89 - Other specified disorders of brain Status: Acute (5) Abnormal TSH: Code(s): R79.89 - Other specified abnormal findings of blood chemistry Status: Acute (6) Dizziness: Code(s): R42 - Dizziness and giddiness Status: Acute DS: Summary Hospital Course Reason for hospitalization: this 59-year-old pleasant woman was here after having had the removal of what is presumed to be a large meningioma of the right cerebral hemisphere left-sided weakness and minimal cognitive impairment she did remarkably well in over rehab program without any worsening whatsoever in is in her neurological state and was able to be sent home with the outpatient physical therapy and of course of follow-up with the treating surgeon after she had the craniotomy performed Hospital Course: the patient received the physical therapy occupational therapy and speech therapy and was a able to achieve the following independent measures Eating setup, oral hygiene independent, toileting independent, bathing independent, upper body dressing independent, lower body dressing independent, footwear independent, rolling in bed dependent, sitting to lying independent, lying to sitting independent, sit to stand independent, trocar chair transfers independent, toilet transfers independent, car transfers independent, walking 10 feet independent, walking 50 feet with 2 turns independent, walking 150 feet independent, walking 10 feet uneven surfaces independent, [place] step independent, 4 steps independent, 12 steps independent, became object independent, wheelchair not applicable The patient is able to be sent home with a stable and good conditions with outpatient PT and follow-up appointment with the treating surgeon Time Spent with Patient Time attestation: Total time spent providing and/or coordinating discharge services: Exam Narrative: Exam Narrative: patient remained awake and alert and well oriented and improved minimal cognitive impairment the craniotomy site was clean and healthy little swelling at the temporal area on the right side was stable in fact in certain aspect it was better eyes ear nose throat normal head is normocephalic with the craniotomy site clean and healthy neck is supple chronic and Brudzinski signs are negative patient's left-sided hemiparesis significantly improved and she was able to be discharged in the good and much improved condition Discharge Plan Discharge Attending physician on discharge: Gaurang Hernandez Discharging Clinician: Gaurang Hernandez Anticipated Discharge Date/Time: 04/16/20 13:35 Patient Disposition: Home, Self-Care Activity: may shower and no driving Diet: as tolerated Patient Instructions: Antibiotic Form, Constipation (GEN), Pain Management (GEN), Craniotomy for Tumor Resection (GEN) Stand Alone Forms: General Discharge Information Follow-up/Referrals: Dr. Nowak [Other] (Follow-up upon discharge...they are to call you with appointment, but if you do not hear from them, call to schedule.) PCP [Other] (Follow-up with primary care physician upon discharge from [facility]hab for general health maintenance and well being.) Marilyn Stewart [Other] (Appointment at 8:30am on 04/09/20 (to be rescheduled)) Angeles Summers [Other] (Appointment at 3pm on 05/14/20) Discharge Medications: New cholecalciferol (vitamin D3) [Vitamin D3] 25 mcg (1,000 unit) Tablet 2,000 unit PO DAILY Qty: 90
== END 2020-04-16 14:05 | disposition home or self-care (01) | DRG 949 ==
PROVIDERS: Psychiatry & Neurology Neurology; Admitting Provider Psychiatry & Neurology Neurology; PCP Family Medicine; Visit Provider Psychiatry & Neurology Neurology
DX: Z48.811 Encounter for surgical aftercare following surgery on the nervous system (principal); G93.6 Cerebral edema; G81.94 Hemiplegia, unspecified affecting left nondominant side; G93.89 Other specified disorders of brain; R47.1 Dysarthria and anarthria; G31.84 Mild cognitive impairment of uncertain or unknown etiology; R29.6 Repeated falls; R79.89 Other specified abnormal findings of blood chemistry; R42 Dizziness and giddiness; Z86.79 Personal history of other diseases of the circulatory system; Z85.828 Personal history of other malignant neoplasm of skin
CPT/HCPCS: 36415; 74018; 80048; 85025; 92523; 97110; 97116; 97161; 97166; 97530; 97535; A9270; J1644; J8540

== ENCOUNTER 2020-06-02 12:30 | Outpatient (RCR) | payer OTHER, SELFPAY ==
--- NOTE | 2020-05-02 15:16 | PTOPEVAL ---
PHYSICAL THERAPY EVALUATION AND PLAN OF CARE 05-02-2020 Thank you for referring Mrs. Chou to [facility].? She is scheduled to be seen for therapy? 1 x/week for 4 weeks. Please review, sign, date and return this plan of care ROD. I agree with and certify that the following plan of care is medically necessary. Referring Physician Date Attending Provider: Gaurang Hernandez MD *PT Outpatient Evaluation Document 05/02/20 14:10 SAL (Rec: 05/02/20 15:16 SAL [id number]) Outpatient Past Medical History Past Medical History Source of Past Medical History Patient,Family/Significant Other Neurological History Hx Other Neurological Disorders Yes: Craniotomy for R temporal mengianoma 04/04/20 Cardiovascular History Hx Cardiac Arrhythmia Yes Hx Hypercholesterolemia Yes Hx Irregular Heartbeat Yes: v tach/PVC's/bradycardia Hx Other Cardiac Disorders Yes: Hx of V-Tach and ablation 11/16/19 Respiratory History Hx Bronchitis Yes Gastrointestinal History Hx Gastroesophageal Reflux Disease Yes: since craniotomy Genitourinary History Hx Other Genitourinary Disorders Yes: Incontinence before surgery; not any now Musculoskeletal History Hx Other Musculoskeletal Disorders Yes: neck pain; R frozen shoulder Hematological History Hx Anemia Yes: 04/2020 Endocrine History Hx Endocrine Disorders No Significant History HEENT History Hx Cataracts Yes: left side Integumentary History Hx Shingles Yes: 2004 Reproductive History Hx Fibroids Yes Psychosocial History Hx Psychiatric Disorders No Significant History Pain History History of Any Previous or Ongoing No Significant History Instance of Pain Anesthesia History Hx Anesthesia Reactions No Significant History Other History Hx Other Surgeries Yes: Craniotomy 04/04/20 Evaluation Information Problem Diagnosis s/p craniotomy R temporal mengioma Onset 04-04-2020 Subjective Information after surgery, had in pt rehab Query Text:As Reported By Patient/ and discharge 04-16-20; Family returned to home, using hand wt for UE exercises; doing standing LE exercises at home; exercises to stretch hips; is working on increasing her activity level- walking, home tasks; per pt: no restrictions from surgeon; Previous Treatments Previ
--- NOTE | 2020-06-02 13:14 | PTOPEVAL ---
PHYSICAL THERAPY DISCHARGE 06-02-2020 Thank you for referring Juan Chou to [facility].? Refer to the clinical summary below for her status. She has improved in all areas and goals were achieved, except walking distance with the 6 minute walk test and R LE strength with SLR due to R knee pain. Please review, sign, date and return this discharge ROD. I agree with and certify that the following plan of care is medically necessary. Referring Physician Date Attending Provider: Gaurang Hernandez MD *PT Outpatient Discharge Document 06/02/20 12:35 SAL (Rec: 06/02/20 13:14 SAL [id number]) Subjective Information Juan reports: this is the Query Text:As Reported By Patient/ start of the 3rd week for her Family chemo and radiation treatment; is doing home chores--laundry , cooking, cleaning without any problems; has not had any falls; has been walking to build up her strength; no problems with her mobility; doing her exercises at home for legs and balance; Pain Assessment Timing of Pain Assessment Timing of Pain Assessment Assessment Self Report Self Report Pain Level 0 Pain Score Pain Score 0: Self Report Additional Pain Score Comments feels like she has some sinus issues, and some fatigue from her med nirmal for seizures; Lower Extremity Muscle Strength Testing General Lower Extremity Strength Gross Lower Extremity Strength single leg standing R 34/ L 60 seconds with good stability; with supine exercises, 5# ankle wt: SLR R 12/L 20 reps; hip abduction R 20/ L 20 reps; bridge 25 reps; Transfer Assessment Floor Transfer Assessment Ambulation Assistive Devices None Sit to Floor Transfer Ability Independent Floor to Stand Transfer Ability Independent Cues Needed for Floor Transfer None Floor Transfer Comments use of UE's on mat to raise self up off floor; Gait Assessment Gait Assessment Ambulation Assistive Devices None Ambulation Surface Decline,Incline Ambulation Ability Independent Cues Needed For Ambulation None Additional Ambulation Comments good step length; no loss of balance 6 Minute Walk Total Distance (feet) 1,050 6 Minute Walk Gait Speed Score (feet/ 2.91 second) Number of Breaks During Test 0 6 Minute Gait Comments
== END 2020-06-03 14:12 | disposition home or self-care (01) ==
LOC: ANHPT 12:30
PROVIDERS: PCP Family Medicine; Visit Provider Psychiatry & Neurology Neurology
DX: G31.84 Mild cognitive impairment of uncertain or unknown etiology (principal); G81.94 Hemiplegia, unspecified affecting left nondominant side; Z98.890 Other specified postprocedural states; G93.89 Other specified disorders of brain
CPT/HCPCS: 97110; 97161